=== PATIENT | male | born 1945 | race Two or more races ===

== ENCOUNTER 2020-05-24 08:40 | Outpatient (REF) | payer MEDICARE, SELFPAY ==
[2020-05-24 10:33] LABS: Prostate Specific Antigen 0.24 ng/mL (<0.05-4.0)
== END 2020-05-24 08:41 | disposition home or self-care (01) ==
LOC: HO.LAB 08:40
PROVIDERS: PCP Internal Medicine; Visit Provider Nurse Practitioner
DX: N40.0 Benign prostatic hyperplasia without lower urinary tract symptoms (principal); Z12.5 Encounter for screening for malignant neoplasm of prostate
CPT/HCPCS: 84153

== ENCOUNTER 2020-08-23 16:58 | Outpatient (REF) | payer MEDICARE, SELFPAY ==
--- NOTE | ~2020-08-23 | XR_ITS ---
EXAMINATION: CHEST 2 VIEWS CLINICAL INFORMATION: R07.9 - Chest pain, unspecified . COMPARISON: 11/25/2018. TECHNIQUE: PA and lateral views of the chest obtained. FINDINGS: The lungs are well expanded. No focal infiltrate, effusion, edema, or pneumothorax. Cardiac and mediastinal silhouettes are within normal limits for technique. No acute bony abnormality seen with degenerative changes in the spine. XR/XR chest 2V IMPRESSION: No evidence of acute disease
== END 2020-08-23 16:59 | disposition home or self-care (01) ==
LOC: HO.XRAY 16:58
PROVIDERS: PCP Internal Medicine; Visit Provider Internal Medicine
DX: R07.9 Chest pain, unspecified (principal)
CPT/HCPCS: 71046

== ENCOUNTER 2020-08-30 14:23 | Outpatient (REF) | payer MEDICARE, SELFPAY ==
--- NOTE | ~2020-08-30 | MM_ITS ---
EXAMINATION: MM DIAGNOSTIC DIGITAL BREAST TOMOSYNTHESIS, BILATERAL US DIAGNOSTIC ULTRASOUND BREAST, LEFT CLINICAL INFORMATION: 75-year-old male with left nipple/areolar pain for several months. No palpable mass or discharge. No known family history breast cancer. COMPARISON: None (current study represents initial baseline exam). TECHNIQUE: Digital breast tomosynthesis is performed in both the craniocaudal and mediolateral oblique views along with computer-aided detection (CAD). Synthesized 2D images are generated from the tomosynthesis. Ultrasound left breast is targeted to the retroareolar and periareolar region. Grayscale imaging and color Doppler are performed without and with harmonics. FINDINGS: The breasts are almost entirely fatty (ACR BI-RADS breast composition Category a). There is no mass or architectural abnormality. No duct ectasia. No focal skin thickening or coarsening of the stromal markings. Ultrasound demonstrates no cystic or solid mass or architectural abnormality. No focal duct ectasia. No skin thickening or edema tracking in the soft tissue planes. Results are discussed with the patient at time of visit. MM/MM tomosynthesis diagnostic BI IMPRESSION: 1. No mammographic evidence of malignancy or inflammatory changes. 2. Unremarkable targeted left breast ultrasound. ASSESSMENT: BI-RADS 1: Negative RECOMMENDATION: Patient should be managed based on the clinical impression.
== END 2020-08-30 14:24 | disposition home or self-care (01) ==
LOC: HO.MAMMO 14:23
PROVIDERS: Visit Provider Internal Medicine
DX: N64.4 Mastodynia (principal)
CPT/HCPCS: 76642; 77062; 77066

== ENCOUNTER → 2020-09-07 07:55 | Outpatient (REF) | payer MEDICARE, SELFPAY ==
--- NOTE | 2020-09-07 08:00 | ECG_ITS ---
Test Reason : CP Blood Pressure : / mmHG Vent. Rate : 062 BPM Atrial Rate : 000 BPM P-R Int : 156 ms QRS Dur : 90 ms QT Int : 392 ms P-R-T Axes : 67 49 50 degrees QTc Int : 397 ms Normal sinus rhythm Normal ECG When compared with ECG of 07-SEP-2020 08:08, No significant changes seen Referred By: Jassi Wheat Electronically Signed By: BLAINE CHIN
--- NOTE | 2020-09-07 08:00 | CA_ITS ---
Acquisition Time: 2020-09-07 08:17:17 Total Exercise Time: 00:06:59 Test Indications: Dyspnea Medications: SIMVASTATIN FINASTERIDE TAMSULOSIN Protocol: JANA Max HR: 133 BPM 93% of Pred: 143 BPM Max BP: 200/080 mmHG Max Work Load: 8.5 METS Exercise stress test using Jana protocol, total of 6 min 59 sec. METS 8.50, TAPHR up to 93 %. Pt tolerated well, denies any anginal sx, EKG with multiple PAC's at baseline and during exercise. No ischemic changes seen during exercise or in recovery. Hypertensive response to exercise. Test reviewed with Dr. Castillo. Referred By: Jassi Wheat Overread By:
== END ==
LOC: HO.CARD 07:55
PROVIDERS: PCP Internal Medicine; Visit Provider Internal Medicine
DX: R07.9 Chest pain, unspecified (principal)
CPT/HCPCS: 93005; 93016; 93017; 93018

== ENCOUNTER 2021-02-22 13:03 | Outpatient (REF) | payer MEDICARE, SELFPAY ==
--- NOTE | ~2021-02-22 | XR_ITS ---
EXAMINATION: XR KNEE, RIGHT CLINICAL INFORMATION: Right knee pain. COMPARISON: None TECHNIQUE: Four views of the right knee. FINDINGS: No acute fracture or dislocation. Mild medial compartment joint space narrowing. Small patellofemoral compartment marginal osteophytes with mild subchondral cystic change. Moderate joint effusion. Ossified loose body posterior to the medial tibial plateau measuring up to 2.3 cm. XR/XR knee RT 4V IMPRESSION: Mild medial and patellofemoral compartment osteoarthritis. Posterior ossified loose body measuring up to 2.3 cm. Moderate joint effusion.
== END 2021-02-22 13:04 | disposition home or self-care (01) ==
LOC: HO.HMGCX 13:03
PROVIDERS: PCP Internal Medicine; Visit Provider Physician Assistant
DX: M25.561 Pain in right knee (principal)
CPT/HCPCS: 73564

== ENCOUNTER 2021-03-17 07:24 | Outpatient (REF) | payer MEDICARE, SELFPAY ==
[2021-03-17 08:29] LABS: Estimated Average Glucose 117 mg/dL; Hemoglobin A1c % 5.7 %
[2021-03-17 08:38] LABS: Alanine Aminotransferase 25 U/L (0-40); Albumin Level 4.4 g/dL (3.5-5.0); Alkaline Phosphatase 68 U/L (39-117); Anion Gap 9 (12-20); Aspartate Amino Transferase 23 U/L (5-37); Bilirubin Total 1.3 mg/dL (0.0-1.0); Blood Urea Nitrogen 13 mg/dL (9-16); Calcium 10.3 mg/dL (8.4-10.2); Carbon Dioxide 28 mmol/L (22-29); Chloride 108 mmol/L (96-108); Cholesterol 166 mg/dL; Estimated Glomerular Filt Rate > 60; Glucose Random 97 mg/dL (60-115); HDL Cholesterol 41 mg/dL; LDL Cholesterol Calculated 110 mg/dl; Potassium 4.2 mmol/L (3.3-5.1); Sodium 141 mmol/L (135-145); Total Protein 7.1 g/dL (6.5-8.0); Triglycerides 78 mg/dL
[2021-03-17 09:03] LABS: Free T4 (Free Thyroxine) 0.98 ng/dL (0.71-1.85); Thyroid Stimulating Hormone 1.29 uIU/mL (0.32-4.0)
== END 2021-03-17 07:25 | disposition home or self-care (01) ==
LOC: HO.LAB 07:24
PROVIDERS: PCP Internal Medicine; Visit Provider Internal Medicine
DX: R73.02 Impaired glucose tolerance (oral) (principal); E78.00 Pure hypercholesterolemia, unspecified
CPT/HCPCS: 36415; 80053; 80061; 83036; 84439; 84443

== ENCOUNTER 2021-04-06 09:08 | Outpatient (REF) | payer MEDICARE, SELFPAY | END 2021-04-06 09:09 | disposition home or self-care (01) | LOC: HO.HOSX 09:08 | PROVIDERS: Visit Provider Physician Assistant | DX: M17.11 Unilateral primary osteoarthritis, right knee (principal); M25.562 Pain in left knee | CPT/HCPCS: 99202 ==

== ENCOUNTER 2022-03-22 14:11 | Outpatient (REF) | payer MEDICARE, SELFPAY | END 2022-03-22 14:12 | disposition home or self-care (01) | LOC: HO.SH 14:11 | PROVIDERS: Visit Provider Internal Medicine | DX: Z01.118 Encounter for examination of ears and hearing with other abnormal findings (principal); H90.3 Sensorineural hearing loss, bilateral | CPT/HCPCS: 92557; 92567 ==

== ENCOUNTER 2022-09-14 08:13 | Outpatient (REF) | payer MEDICARE, SELFPAY ==
[2022-09-14 08:31] LABS: MANUAL DIFF FLAG NO
[2022-09-14 09:59] LABS: Basophils Absolute Auto 0.1 X10*3/uL (0.0-0.2); Basophils Percent Auto 0.5 % (0-2); Eosinophils Absolute Auto 0.4 X10*3/uL (0.0-0.4); Eosinophils Percent Auto 4.5 % (0-4); Hematocrit 42.8 % (42.0-52.0); Hemoglobin 14.2 g/dl (14.0-18.0); Imm Gran Abs Auto 0.03 X10*3/uL (0.00-0.03); Imm Gran Pct Auto 0.3 % (0.0-0.4); Lymphocytes Absolute Auto 2.2 X10*3/uL (1.2-4.9); Lymphocytes Percent Auto 22.9 % (20-40); Mean Corpuscular HGB Conc 33.2 g/dl (31.0-36.0); Mean Corpuscular Volume 90.3 fL (80.0-98.0); Mean Platelet Volume 10.9 fL (9.4-12.4); Monocytes Percent Auto 9.9 % (2-11); Neutrophils Percent Auto 61.9 % (45-73); Platelet Count 313 X10*3/uL (160-400); Red Blood Count 4.74 X10*6/uL (4.60-5.80); Red Cell Distribution Width 13.1 % (11.0-16.0); White Blood Count 9.6 X10*3/uL (4.8-10.8)
[2022-09-14 12:26] LABS: Estimated Average Glucose 120 mg/dL; Hemoglobin A1c % 5.8 %
[2022-09-14 12:44] LABS: Alanine Aminotransferase 21 U/L (0-40); Albumin Level 4.3 g/dL (3.5-5.0); Alkaline Phosphatase 87 U/L (39-117); Anion Gap 12 (12-20); Aspartate Amino Transferase 21 U/L (5-37); Bilirubin Total 0.6 mg/dL (0.0-1.0); Blood Urea Nitrogen 9 mg/dL (9-16); Calcium 9.6 mg/dL (8.4-10.2); Carbon Dioxide 29 mmol/L (22-29); Chloride 105 mmol/L (96-108); Cholesterol 172 mg/dL; Estimated Glomerular Filt Rate > 60; Glucose Random 90 mg/dL (60-115); HDL Cholesterol 37 mg/dL; LDL Cholesterol Calculated 122 mg/dl; Potassium 4.7 mmol/L (3.3-5.1); Sodium 141 mmol/L (135-145); Total Protein 6.9 g/dL (6.5-8.0); Triglycerides 68 mg/dL
[2022-09-14 13:01] LABS: Folate 7.7 ng/mL (> or = 4.0); Free T4 (Free Thyroxine) 1.09 ng/dL (0.71-1.85); Thyroid Stimulating Hormone 1.17 uIU/mL (0.32-4.0); Vitamin B12 341 pg/mL (200-900)
== END 2022-09-14 08:14 | disposition home or self-care (01) ==
LOC: HO.LAB 08:13
PROVIDERS: PCP Internal Medicine; Visit Provider Internal Medicine
DX: E78.00 Pure hypercholesterolemia, unspecified (principal); R73.02 Impaired glucose tolerance (oral)
CPT/HCPCS: 36415; 80053; 80061; 82607; 82746; 83036; 84439; 84443; 85025

== ENCOUNTER → 2023-02-27 15:03 | Outpatient (BNVA) | payer MEDICARE, SELFPAY | PROVIDERS: PCP Internal Medicine; Visit Provider Nurse Practitioner ==

== ENCOUNTER 2023-04-05 13:50 | Outpatient (AMB) | payer MEDICARE, SELFPAY ==
[2023-04-05 13:54] VITALS: BP 140/78; PULSE 77; O2SAT 96; BMI 26.3
--- NOTE | 2023-04-05 13:55 | A.OFFVIS_ITS ---
Intake Vital Signs 04/05/23 13:54 Height 5 ft 4 in Weight 153 lb 0.6 oz BMI 26.3 BP 140/78 H Blood Pressure Location Lt brachial Position Sitting Pulse 77 Pulse Source Pulse Oximeter Temp Source Skin Pulse Oximetry (%) 96 Oxygen Delivery Method Room Air Intake Visit Reasons: [facility] G0439 Intake Note: Patient is here for an Annual Wellness Visit. Allergies Seasonal Allergies Allergy (Mild, Verified 04/05/23 14:09) itchy, watery eyes, nose. Medication List - Last Reconciled 04/05/23 by DOROTHY Guerra acetaminophen 1,000 mg PO Q6H PRN melatonin 10 mg PO BEDTIME PRN peg 3350-electrolytes 236-22.74-6.74 -5.86 gram (Golytely) 240 mL PO Q10M 1 day tadalafil (Cialis) 20 mg PO .QOD PRN 20 days trazodone 50 mg PO BEDTIME PRN HPI SWV G0439 HPI Details Patient is a 77-year-old male who presents today for subsequent wellness visit. Patient of Dr. Wheat. Today we discussed patient's need for diabetes screening. Patient reports that he will be having colonoscopy with [facility] and he has prep. Up-to-date with immunizations. [place] of care was reviewed with the patient and he was provided with a screening schedule. End of life planning was discussed with the patient and he was provided with healthcare proxy and MOLST forms. [facility] Medical History Chest pain Hearing deficit Screening for prostate cancer Knee effusion, right Right knee pain Nipple pain Chest pain on exertion BPH (benign prostatic hyperplasia) Hypercholesterolemia Erectile dysfunction Insomnia Vitamin D deficiency History of subdural hematoma Surgical History History of colonoscopy Cataract Family History Father Kidney malignancy Mother CVD (cardiovascular disease) Brother No problems noted. Brother Heart disease Social History Housing: House Alcohol intake: current Alcohol intake frequency: 0-2 drinks per day Alcohol type: beer Patient Tobacco Use Status: Never used Tobacco e-Cigarette/Vaping Use: Never Used Second Hand Smoke Exposure: No service: No Current occupational status: retired Current occupation: rt handed Cognitive needs: No Hearing needs: No Vision needs: No Questionnaire Medicare Wellness Checkup What [age] What gender do you identify with?: male During the past 4 weeks, how much have you been bothered by emotional problems such as feeling anxious, depressed, irritable, sad or downhearted, and blue?: quite a bit During the past 4 weeks, has your physical & emotional health limited your social activities with family, friends, neighbors, or groups?: not at all During the past 4 weeks, how much bodily pain have you generally had?: moderate pain During the past 4 weeks, was someone available to help you if you needed & wanted help?: yes, quite a bit During the past 4 weeks, what was the hardest physical activity you could do for at least 2 minutes?: heavy Can you get to places out of walking distance without help? (For eg., can you travel alone on buses, taxis or drive your car?): Yes Can you go shopping for groceries or clothes without someone's help?: Yes Can you prepare your own meals?: Yes Can you do your housework without help?: Yes Because of any health problems, do you need the help of another person with your personal care needs such as eating, bathing, dressing or getting around the house?: No Can you handle your own money without help?: Yes During the past 4 weeks, how would you rate your health in general?: very good During the past 4 weeks how have things been going for you?: very well; could hardly better Are you having difficulties driving your car?: no Do you always fasten your seat belt when you are in a car?: yes, usually During past 4 weeks, have you been bothered by the following: never: Falling or dizzy when standing up, Trouble eating well?, Teeth or denture problems?, Problems using the telephone? and Tiredness or fatigue? and sometimes: Sexual problems? Have you fallen 2 or more times in the past year?: No Are you afraid of falling?: No Are you a smoker?: no During the past 4 weeks, how many drinks of wine, beer, or other alcoholic beverages did you have?: 1 drink or less per week Do you exercise for about 20 minutes 3 or more times a week?: yes, some of the time Have you been given information to help with the following?: no: Hazards in your house that might hurt you? and no: Keeping track of your medications? How often do you have trouble taking medicines the way you have been told to take them?: I always take medicine as prescribed How confident are you that you can control & manage most of your health problems?: very confident What is your race?: or origin or descent Mini Mental State Exam (MMSE) Orientation What is the (year) (season) (date) (day) (month)?: year, season, date, day and month Score Score: 5 Activity of Daily Living Bathing - sponge bath, tub bath or shower: receives no assistance (gets in/out by self, if usual bathing means Dressing - getting clothes from closets & drawers, including inner/outer garments & fasteners.: gets clothes & gets completely dressed without help Toileting - going to the 'toilet room' for urine/bowel elimination & cleaning self/arranging clothes: goes to toilet room, cleans self, arranges clothes without help Transfer: moves in & out of bed and chair without help (may use support object) Continence: controls urination/bowel movements completely by self Feeding: feeds self without help Total Score: 0 Information obtained from: patient Using telephone: independent Traveling: independent Shopping: independent Preparing meals: independent Housework: independent Taking medicine: independent Managing money: independent PHQ-9 Over the last 2 weeks, how often have you been bothered by any of the following problems? 1. Little interest or pleasure in doing things: not at all 2. Feeling down, depressed, or hopeless: not at all 3. Trouble falling or staying asleep, or sleeping too much: not at all 4. Feeling tired or having little energy: not at all 5. Poor appetite or overeating: not at all 6. Feeling bad about yourself - or that you are a failure or have let yourself or your family down: not at all 7. Trouble concentrating on things, such as reading the newspaper or watching television: not at all 8. Moving or speaking so slowly that other people could have noticed. Or the opposite - being so fidgety or restless that you have been moving around a lot more than usual: not at all 9. Thoughts that you would be better off or of hurting yourself in some way: not at all Total score: 0 Depression Screening Interpretation: Negative 40769 - PHQ-9 Billing: Yes Source: Developed by Drs. Brent Luque, Chrissy Ball, Daren Adams and colleagues, with an educational emir from [employer]. Physical Exam Vital Signs: Last Vital Signs Pulse 77 04/05/23 13:54 BP 140/78 H 04/05/23 13:54 Pulse Ox 96 04/05/23 13:54 Oxygen Delivery Method Room Air 04/05/23 13:54 BMI result Body Mass Index 26.3 Const General: cooperative and no acute distress Orientation/consciousness: patient oriented x3 HEENT Other: Whisper test: fail Neuro Other: Balance: Normal Get up and walk: able to Romberg: negative Tandem gait: able to General: patient oriented x3 Assessment & Plan Assessment & Plan (1) Annual physical exam: Code(s): Z00.00 - Encounter for general adult medical examination without abnormal findings (2) Insomnia: Code(s): G47.00 - Insomnia, unspecified Plan: Reinforced sleep hygiene Refill sent on trazodone (3) Impaired glucose tolerance: Code(s): R73.02 - Impaired glucose tolerance (oral) Plan: Fasting BMP has been ordered (4) Patient is Taoism: Code(s): Z78.9 - Other specified health status (5) BPH (benign prostatic hyperplasia): Code(s): N40.0 - Benign prostatic hyperplasia without lower urinary tract symptoms Plan: Continue to follow-up with urology Dr. Fraga Patient is not on pharmacological treatment (6) Hypercholesterolemia: Code(s): E78.00 - Pure hypercholesterolemia, unspecified Plan: Low-cholesterol diet (7) Screening for diabetes mellitus: Code(s): Z13.1 - Encounter for screening for diabetes mellitus Orders: Orders Basic Metabolic Panel Fasting Today Z13.1 - Encounter for screening for diabetes mellitus Medications: Refilled trazodone 50 mg PO BEDTIME PRN 30 tabs 3RF sleep G47.00 - Insomnia, unspecified Quality Reporting (2019) Depression/Bipolar (159/160/161/177) PHQ-9: Total score: 0 Coding Level of Care Code Medicare Subsequent (G0439) Diagnoses Annual physical exam Z00.00 Insomnia G47.00 Impaired glucose tolerance R73.02 Patient is Taoism Z78.9 BPH (benign prostatic hyperplasia) N40.0 Hypercholesterolemia E78.00 Screening for diabetes mellitus Z13.1 CPT Codes Advance Care Planning - Time spent: 1-15 minutes, not on file ([id number]) Advance Care Planning Date of discussion: 04/05/23 Who was present: pt and records management clerk Forms completed: None Time spent: 1-15 minutes, not on file Actual minutes spent: 3 Did not discuss due to Cultural/Spiritual beliefs: No
== END 2023-04-05 14:25 | disposition home or self-care (01) ==
PROVIDERS: Visit Provider Nurse Practitioner Family
DX: Z00.00 Encounter for general adult medical examination without abnormal findings (principal); G47.00 Insomnia, unspecified; R73.02 Impaired glucose tolerance (oral); Z78.9 Other specified health status; N40.0 Benign prostatic hyperplasia without lower urinary tract symptoms; E78.00 Pure hypercholesterolemia, unspecified; Z13.1 Encounter for screening for diabetes mellitus
CPT/HCPCS: 1124F; G0439

== ENCOUNTER 2023-10-07 15:23 | Outpatient (AMB) | payer MEDICARE, SELFPAY ==
[2023-10-07 15:24] VITALS: BP 162/70; PULSE 69; O2SAT 98; BMI 25.7
--- NOTE | 2023-10-07 15:24 | MHC.PC.OV ---
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 Medication List - Last Reconciled 10/07/23 by Jassi Wheat MD acetaminophen 1,000 mg PO Q6H PRN blood pressure monitor (Blood Pressure Kit) As directed melatonin 10 mg PO BEDTIME PRN peg 3350-electrolytes 236-22.74-6.74 -5.86 gram (Golytely) 240 mL PO Q10M 1 day tadalafil (Cialis) 20 mg PO .QOD PRN 20 days trazodone 50 mg PO BEDTIME PRN Tobacco use date assessed: 10/07/23 Fall risk assessment: No Falls in past year Last assessed Fall Risk: 10/07/23 Dental Screening Dental Screen Date: 10/07/23 Did you have a dental visit in the last 12 months?: No Did you have a dental problem in the last 6 months where you did not have access to dental care?: No HPI 6 Months F/U-HLD HPI Details 78-year-old male with hypercholesterolemia impaired glucose tolerance insomnia coming in for follow-up. Last seen in October 2022. Patient has followed up with nurse practitioner in March for a [place]. And has followed up with Gastroenterology for colon cancer screening. concern on forgetting things, neck pain but discussed with the pateint that he will have osteoarthritis , MMSE 27/30 [facility] Medical History Chest pain Hearing deficit Screening for prostate cancer Knee effusion, right Right knee pain Nipple pain Chest pain on exertion BPH (benign prostatic hyperplasia) Hypercholesterolemia Erectile dysfunction Insomnia Vitamin D deficiency History of subdural hematoma Surgical History History of colonoscopy Cataract Family History Father Kidney malignancy Mother CVD (cardiovascular disease) Brother No problems noted. Brother Heart disease Social History Housing: House Alcohol intake: current Alcohol intake frequency: 0-2 drinks per day Alcohol type: beer Patient Tobacco Use Status: Never used Tobacco e-Cigarette/Vaping Use: Never Used Second Hand Smoke Exposure: No service: No Current occupational status: retired Current occupation: rt handed Cognitive needs: No Hearing needs: No Vision needs: No Questionnaire PHQ-9 Over the last 2 weeks, how often have you been bothered by any of the following problems? 1. Little interest or pleasure in doing things: not at all 2. Feeling down, depressed, or hopeless: not at all 3. Trouble falling or staying asleep, or sleeping too much: not at all 4. Feeling tired or having little energy: not at all 5. Poor appetite or overeating: not at all 6. Feeling bad about yourself - or that you are a failure or have let yourself or your family down: not at all 7. Trouble concentrating on things, such as reading the newspaper or watching television: not at all 8. Moving or speaking so slowly that other people could have noticed. Or the opposite - being so fidgety or restless that you have been moving around a lot more than usual: not at all 9. Thoughts that you would be better off or of hurting yourself in some way: not at all Total score: 0 Depression Screening Interpretation: Negative Depression Screening Done: Yes 69035 - PHQ-9 Billing: Yes Source: Developed by Drs. Brent Luque, Chrissy Ball, Daren Adams and colleagues, with an educational emir from [employer]. Thrive Questionnaire Date Thrive assessed: 10/07/23 I am a: Patient What is your living situation today?: I have a steady place to live Within the past 12 months, did the food you bought not last and you didn't have the money to get more?: Never true Within the past 12 months, did you worry whether your food would run out before you got money to buy more?: Never true Do you have trouble paying for medicines?: No Do you have trouble getting transportation to medical appointments?: No Do you have trouble paying your heating and electricity bill?: No Do you have trouble taking care of your child, family member or friend?: No Do you have trouble with day-to-day activities such as bathing, preparing meals, shopping, managing finances, etc.?: No Are you currently unemployed and looking for a job?: No Are you interested in more education?: No Please select the resources that you would like help with: None Currently or been in a relationship where the following occur: no concerns reported THRIVE Score: 0 AUDIT C Alcohol Use Questionnaire (AUDIT-C) 1. How often do you have a drink containing alcohol?: Monthly or less 2. How many drinks containing alcohol do you have on a typical day when you are drinking?: 1 or 2 (0) 3. How often do you have six or more drinks on one occasion?: Never Total Score: 1 Score Reviewed/Action Taken: No STEPHON-7 AMB Questionnaire STEPHON-7 Date STEPHON - 7 assessed: 10/07/23 Feeling nervous, anxious, or on edge: 0 = Not at all Not being able to stop or control worryin = Not at all Worrying too much about different things: 0 = Not at all Trouble relaxin = Not at all Being so restless that it is hard to sit still: 0 = Not at all Becoming easily annoyed or irritable: 0 = Not at all Feeling afraid as if something awful might happen: 0 = Not at all Total STEPHON-7 score (0-4 normal; 5-9 mild; 10-14 moderate; 15-21 severe): 0 Source: Developed by Drs. Brent Luque, Chrissy Ball, Daren Adams and colleagues, with an educational emir from [employer]. STEPHON-7 Assessment Billing STEPHON-7 Assessment Tool: STEPHON-7 Assessment 69915 Physical exam (Primary Care) Vital Signs: Last Vital Signs Pulse 69 10/07/23 15:24 BP 162/70 H 10/07/23 15:24 Pulse Ox 98 10/07/23 15:24 Oxygen Delivery Method Room Air 10/07/23 15:24 BMI result Body Mass Index 25.7 Tobacco/Smoking Status: Tobacco use Status Tobacco use date assessed 10/07/23 10/07/23 15:25 Patient Tobacco Use Status Never used Tobacco 10/07/23 15:25 e-Cigarette/Vaping Use Never Used 10/07/23 15:25 PHQ-9: PHQ-9 Score PHQ-9: Total score 0 10/07/23 15:49 Depression Screening Interpretation: Negative Thrive Assessment: Date of Thrive Assessment Date Thrive assessed 10/07/23 10/07/23 15:25 Currently or been in a relationship where the following occur: no concerns reported Const General: alert; No acute distress Eyes Conjunctivae: conjunctivae normal Resp Auscultation: clear to auscultation bilaterally Cardio Rate: regular rate Rhythm: regular rhythm GI Inspection: Yes normal to inspection Extrem General: Yes normal to inspection and No edema Assessment and Plan Assessment & Plan (1) Hypercholesterolemia: Code(s): E78.00 - Pure hypercholesterolemia, unspecified Plan: Avoid fried foods, chicken skin, eggs, butter margarine, pastries and meat. Be it pork or beef they have a lot of cholesterol (2) BPH (benign prostatic hyperplasia): Code(s): N40.0 - Benign prostatic hyperplasia without lower urinary tract symptoms Plan: Continue present medication (3) Impaired glucose tolerance: Code(s): R73.02 - Impaired glucose tolerance (oral) Plan: Decrease the amount of carbohydrate intake, pasta, bread, rice and potatoes are all sugar and that is aside from all the sweet stuff, remember that fruits are good but they are Sweet also. (4) Blood pressure elevated without history of HTN: Code(s): R03.0 - Elevated blood-pressure reading, without diagnosis of hypertension Plan: advised to ,monitor the BP and record Orders: Orders Comprehensive Met. Panel Today R73.02 - Impaired glucose tolerance (oral) Free T4 (Free Thyroxine) Today R73.02 - Impaired glucose tolerance (oral) Thyroid Stimulating Hormone Today R73.02 - Impaired glucose tolerance (oral) Complete Blood Count Auto Diff Today R73.02 - Impaired glucose tolerance (oral) Vitamin B12 and Folate Today R73.02 - Impaired glucose tolerance (oral) Hemoglobin A1c Today R73.02 - Impaired glucose tolerance (oral) Lipid Panel Today E78.00 - Pure hypercholesterolemia, unspecified, R73.02 - Impaired glucose tolerance (oral) Medications: New blood pressure monitor (Blood Pressure Kit) As directed 1 ea 0RF I10 - Essential (primary) hypertension, R03.0 - Elevated blood-pressure reading, without diagnosis of hypertension Coding Level of Care Code Est Pt Level 4 (50487) Diagnoses Hypercholesterolemia E78.00 BPH (benign prostatic hyperplasia) N40.0 Impaired glucose tolerance R73.02 Blood pressure elevated without history of HTN R03.0 Additional Codes STEPHON-7 Assessment Billing - STEPHON-7 Assessment Tool: STEPHON-7 Assessment [id number] ([id number])
== END 2023-10-07 17:42 | disposition home or self-care (01) ==
PROVIDERS: PCP Internal Medicine; Visit Provider Internal Medicine
DX: E78.00 Pure hypercholesterolemia, unspecified (principal); N40.0 Benign prostatic hyperplasia without lower urinary tract symptoms; R73.02 Impaired glucose tolerance (oral); R03.0 Elevated blood-pressure reading, without diagnosis of hypertension
CPT/HCPCS: 99214

== ENCOUNTER 2024-02-18 14:24 | Outpatient (AMB) | payer MEDICARE, SELFPAY ==
[2024-02-18 14:28] VITALS: BP 130/60; PULSE 76; O2SAT 95; BMI 25.1
--- NOTE | 2024-02-18 14:28 | MHC.PC.OV ---
Vital Signs 02/18/24 14:28 Height 5 ft 4 in Weight 146 lb BMI 25.1 BP 130/60 Blood Pressure Location Lt brachial Position Sitting Pulse 76 Pulse Source Pulse Oximeter Pulse Oximetry (%) 95 Oxygen Delivery Method Room Air Intake Visit Reasons: Blood pressured elevated Switch House Operator Required: No Allergies Seasonal Allergies Allergy (Mild, Verified 02/18/24 14:28) itchy, watery eyes, nose. Tobacco use date assessed: 10/07/23 Fall risk assessment: No Falls in past year Last assessed Fall Risk: 02/18/24 Dental Screening Dental Screen Date: 10/07/23 HPI Blood pressured elevated HPI Details 78-year-old male with hypercholesterolemia BPH impaired glucose tolerance and last seen in October having an elevated blood pressure patient is here for follow-up. R shoulder pain , deny fall or trauma [facility] Medical History (Updated 02/18/24 @ 14:46 by Jassi Wheat MD) Pre-op examination Screening for diabetes mellitus Chest pain Hearing deficit Screening for prostate cancer Knee effusion, right Right knee pain Nipple pain Chest pain on exertion BPH (benign prostatic hyperplasia) Hypercholesterolemia Erectile dysfunction Insomnia Vitamin D deficiency History of subdural hematoma Surgical History History of colonoscopy Cataract Family History Father Kidney malignancy Mother CVD (cardiovascular disease) Brother No problems noted. Brother Heart disease Social History Housing: House Alcohol intake: current Alcohol intake frequency: 0-2 drinks per day Alcohol type: beer Patient Tobacco Use Status: Never used Tobacco e-Cigarette/Vaping Use: Never Used Second Hand Smoke Exposure: No service: No Current occupational status: retired Current occupation: rt handed Cognitive needs: No Hearing needs: No Vision needs: No Questionnaire Thrive Questionnaire Date Thrive assessed: 10/07/23 AUDIT C Alcohol Use Questionnaire (AUDIT-C) 1. How often do you have a drink containing alcohol?: Monthly or less 2. How many drinks containing alcohol do you have on a typical day when you are drinking?: 1 or 2 (0) 3. How often do you have six or more drinks on one occasion?: Never Total Score: 1 Score Reviewed/Action Taken: No STEPHON-7 AMB Questionnaire STEPHON-7 Date STEPHON - 7 assessed: 10/07/23 Source: Developed by Drs. Brent Luque, Chrissy Ball, Daren Adams and colleagues, with an educational emir from [employer]. Physical exam (Primary Care) Vital Signs: Last Vital Signs Pulse 76 02/18/24 14:28 BP 130/60 02/18/24 14:28 Pulse Ox 95 02/18/24 14:28 Oxygen Delivery Method Room Air 02/18/24 14:28 BMI result Body Mass Index 25.1 Tobacco/Smoking Status: Tobacco use Status Tobacco use date assessed 10/07/23 02/18/24 14:29 Patient Tobacco Use Status Never used Tobacco 02/18/24 14:29 e-Cigarette/Vaping Use Never Used 02/18/24 14:29 Thrive Assessment: Date of Thrive Assessment Date Thrive assessed 10/07/23 02/18/24 14:29 Const General: alert; No acute distress Eyes Conjunctivae: conjunctivae normal Resp Auscultation: clear to auscultation bilaterally Cardio Rate: regular rate Rhythm: regular rhythm GI Inspection: Yes normal to inspection Extrem General: Yes normal to inspection and No edema Assessment and Plan Assessment & Plan (1) Blood pressure elevated without history of HTN: Code(s): R03.0 - Elevated blood-pressure reading, without diagnosis of hypertension Plan: Blood pressure presently on under control. Though sodium diet. (2) Hypercholesterolemia: Code(s): E78.00 - Pure hypercholesterolemia, unspecified Plan: Avoid fried foods, chicken skin, eggs, butter margarine, pastries and meat. Be it pork or beef they have a lot of cholesterol (3) BPH (benign prostatic hyperplasia): Code(s): N40.0 - Benign prostatic hyperplasia without lower urinary tract symptoms Plan: Continue with tadalafil (4) Insomnia: Code(s): G47.00 - Insomnia, unspecified Medications: Changed From trazodone 50 mg PO BEDTIME PRN 30 tabs 3RF sleep G47.00 - Insomnia, unspecified To trazodone 100 mg PO BEDTIME PRN 30 tabs 3RF sleep G47.00 - Insomnia, unspecified Coding Level of Care Code Est Pt Level 4 (25031) Diagnoses Blood pressure elevated without history of HTN R03.0 Hypercholesterolemia E78.00 BPH (benign prostatic hyperplasia) N40.0 Insomnia G47.00
== END 2024-02-18 15:00 | disposition home or self-care (01) ==
PROVIDERS: PCP Internal Medicine; Visit Provider Internal Medicine
DX: R03.0 Elevated blood-pressure reading, without diagnosis of hypertension (principal); E78.00 Pure hypercholesterolemia, unspecified; N40.0 Benign prostatic hyperplasia without lower urinary tract symptoms; G47.00 Insomnia, unspecified
CPT/HCPCS: 99214

== ENCOUNTER 2024-06-26 13:14 | Outpatient (AMB) | payer MEDICARE, SELFPAY ==
--- NOTE | 2024-06-26 13:17 | A.OFFPC_ITS ---
Vital Signs 06/26/24 13:18 Height 5 ft 4 in Weight 151 lb 8 oz BMI 26.0 BP 140/70 H Blood Pressure Location Lt brachial Position Sitting Pulse 80 Pulse Source Pulse Oximeter Pulse Oximetry (%) 98 Oxygen Delivery Method Room Air Intake Visit Reasons: Annual PE - see comment Allergies Seasonal Allergies Allergy (Mild, Verified 06/26/24 13:21) itchy, watery eyes, nose. Medication List - Last Reconciled 06/26/24 by Jassi Wheat MD acetaminophen 1,000 mg PO Q6H PRN bisacodyl (Dulcolax (bisacodyl)) 20 mg (4 x 5 mg) PO ONCE 1 day blood pressure monitor (Blood Pressure Kit) As directed melatonin 10 mg PO BEDTIME PRN trazodone 100 mg PO BEDTIME PRN Tobacco use date assessed: 06/26/24 Fall risk assessment: No Falls in past year Last assessed Fall Risk: 06/26/24 Dental Screening Dental Screen Date: 06/26/24 Did you have a dental visit in the last 12 months?: No Did you have a dental problem in the last 6 months where you did not have access to dental care?: No Was dental information given to patient?: Patient has dentist HPI Annual PE - see comment HPI Details The patient is an 78-year-old male presenting with hypertension. Previously diagnosed, the patient's blood pressure has been uncontrolled, with home measurements indicating persistent high readings. This condition has been progressively monitored with emphasis on consistent recording of blood pressure at least two to three times a week. Attempts to manage at home include monitoring diet and reducing salt intake. The patient reports no prior cardiovascular events but acknowledges familial predisposition with a paternal history of kidney cancer. The patient also presents with benign prostatic hyperplasia, experiencing nocturia and urgency, impacting sleep quality. The patient described increased urinary frequency, needing to void urgently, often leading to incontinence. He has a planned follow-up appointment with a urologist to address these symptoms. Additionally, the patient notes a history of intermittent sleep disturbance, for which he takes trazodone intermittently. The patient described waking multiple times at night, although trazodone provides some relief. A recent history of hearing difficulties was noted, yet not severe enough to require immediate auditory evaluation. - Pneumonia vaccination has been adminis tered previously. - Tetanus immunization is current. - Dietary advice includes sodium reducti on for hypertension management. - Scheduled follow-up with urology for b enign prostatic hyperplasia. - Consumes alcohol approximately once a week, with an intake of one drink each time. - Denies tobacco use history. - Reports difficulty with sleep, possibl y related to benign prostatic hyperplasia and general sleep disturbances. - Lives with sleep interruptions due to urgency related to his prostate condition. - Cardiovascular: Reports hypertension, denies chest pain, denies palpitations. - Genitourinary: Reports urgency, noctur ia, and incontinence; denies burning during urination. - Neurological: Reports occasional sleep disturbance; denies dizziness or syncope. - Ears: Reports some hearing difficulty; denies ear pain. [facility] Medical History Pre-op examination Screening for diabetes mellitus Chest pain Hearing deficit Screening for prostate cancer Knee effusion, right Right knee pain Nipple pain Chest pain on exertion BPH (benign prostatic hyperplasia) Hypercholesterolemia Erectile dysfunction Insomnia Vitamin D deficiency History of subdural hematoma Surgical History History of colonoscopy Cataract Family History Father Kidney malignancy Mother CVD (cardiovascular disease) Brother No problems noted. Brother Heart disease Social History (Updated 06/26/24 @ 14:01 by Jassi Wheat MD) Housing: House Alcohol intake: current Alcohol intake frequency: 0-2 drinks per day Alcohol type: beer Comment: once a week 1 drink Patient Tobacco Use Status: Never used Tobacco e-Cigarette/Vaping Use: Never Used Second Hand Smoke Exposure: No service: No Current occupational status: retired Current occupation: rt handed Cognitive needs: No Hearing needs: No Vision needs: No Questionnaire PHQ-9 Over the last 2 weeks, how often have you been bothered by any of the following problems? 1. Little interest or pleasure in doing things: not at all 2. Feeling down, depressed, or hopeless: not at all 3. Trouble falling or staying asleep, or sleeping too much: several days 4. Feeling tired or having little energy: not at all 5. Poor appetite or overeating: not at all 6. Feeling bad about yourself - or that you are a failure or have let yourself or your family down: not at all 7. Trouble concentrating on things, such as reading the newspaper or watching television: not at all 8. Moving or speaking so slowly that other people could have noticed. Or the opposite - being so fidgety or restless that you have been moving around a lot more than usual: not at all 9. Thoughts that you would be better off or of hurting yourself in some way: not at all Total score: 1 Depression Screening Interpretation: Negative Depression Screening Done: Yes 76875 - PHQ-9 Billing: Yes Source: Developed by Drs. Brent Luque, Chrissy Ball, Daren Adams and colleagues, with an educational emir from [employer]. Thrive Questionnaire Date Thrive assessed: 06/26/24 I am a: Patient What is your living situation today?: I have a steady place to live Within the past 12 months, did the food you bought not last and you didn't have the money to get more?: Never true Within the past 12 months, did you worry whether your food would run out before you got money to buy more?: Never true Do you have trouble paying for medicines?: No Do you have trouble getting transportation to medical appointments?: No Do you have trouble paying your heating and electricity bill?: No Do you have trouble taking care of your child, family member or friend?: No Do you have trouble with day-to-day activities such as bathing, preparing meals, shopping, managing finances, etc.?: No Are you currently unemployed and looking for a job?: No Are you interested in more education?: No Please select the resources that you would like help with: None Currently or been in a relationship where the following occur: No concerns reported THRIVE Score: 0 AUDIT C Alcohol Use Questionnaire (AUDIT-C) 1. How often do you have a drink containing alcohol?: 2-3 times a week 2. How many drinks containing alcohol do you have on a typical day when you are drinking?: 1 or 2 3. How often do you have six or more drinks on one occasion?: Never Total Score: 3 STEPHON-7 AMB Questionnaire STEPHON-7 Date STEPHON - 7 assessed: 06/26/24 Feeling nervous, anxious, or on edge: 0 = Not at all Not being able to stop or control worryin = Not at all Worrying too much about different things: 0 = Not at all Trouble relaxin = Not at all Being so restless that it is hard to sit still: 0 = Not at all Becoming easily annoyed or irritable: 0 = Not at all Feeling afraid as if something awful might happen: 0 = Not at all Total STEPHON-7 score (0-4 normal; 5-9 mild; 10-14 moderate; 15-21 severe): 0 Source: Developed by Drs. Brent Luque, Chrissy Ball, Daren Adams and colleagues, with an educational emir from [employer]. STEPHON-7 Assessment Billing STEPHON-7 Assessment Tool: STEPHON-7 Assessment 26612 Review of Systems Const Denies poor appetite and Denies weakness Eyes Denies no additional complaints ENT Reports Normal hearing present, Denies dizziness, Denies nasal congestion, Denies tinnitus and Denies sore throat Card Denies chest pain, Denies syncope, Denies rapid heart rate and Denies dyspnea Resp Denies cough and Denies dyspnea GI Denies change in stool character, Reports constipation, Denies diarrhea, Denies nausea and Denies vomiting Denies dysuria and Denies urinary frequency Neuro Reports Normal hearing present, Denies confusion, Denies dizziness, Denies syncope and Denies weakness Psych Denies confusion Physical exam (Primary Care) Vital Signs: Last Vital Signs Pulse 80 06/26/24 13:18 BP 140/70 H 06/26/24 13:18 Pulse Ox 98 06/26/24 13:18 Oxygen Delivery Method Room Air 06/26/24 13:18 BMI result Body Mass Index 26.0 Tobacco/Smoking Status: Tobacco use Status Tobacco use date assessed 06/26/24 06/26/24 13:22 Patient Tobacco Use Status Never used Tobacco 06/26/24 14:01 e-Cigarette/Vaping Use Never Used 06/26/24 14:01 PHQ-9: PHQ-9 Score PHQ-9: Total score 1 06/26/24 13:55 Depression Screening Interpretation: Negative Thrive Assessment: Date of Thrive Assessment Date Thrive assessed 06/26/24 06/26/24 13:22 Currently or been in a relationship where the following occur: No concerns reported Const General: No confusion Orientation/consciousness: No confusion HENMT Head: Yes normocephalic Ears: external ears normal and TM's normal bilaterally Face and sinus: Yes normal facial exam Mouth: moist mucous membranes Throat: Yes tonsils normal Eyes Conjunctivae: conjunctivae normal Pupils: Equal, round and reactive pupils present and Pupil accommodation reflex normal Direct Ophthalmoscopy: normal light reflex Neck Neck: No lymphadenopathy Thyroid: Thyroid normal Chest Chest palpation & inspection: normal inspection of the chest Resp Effort & Inspection: normal respiratory effort and no audible wheezes Auscultation: clear to auscultation bilaterally, no crackles, no wheezes and lung sounds not diminished Cardio Rate: regular rate Rhythm: regular rhythm Peripheral pulses: radial pulses present and dorsalis pedis present GI Other: guaiac negative Prostate Enlargedx Palpation (GI): no masses Auscultation: normal bowel sounds and normoactive bowel sounds Male General Exam: Yes normal external exam Skin General skin exam: no rashes or lesions noted Rashes: no rashes Neuro General: No confusion Cranial nerves: Yes Equal, round and reactive pupils present and Yes Normal hearing present Cognition (Neuro): normal cognition Gait exam (Neuro): Normal gait present Motor exam (neuro): 5/5 motor strength present throughout Deep tendon reflexes (DTR's): Right brachioradialis reflex intensity grade: 2+, Left brachioradialis reflex intensity grade: 2+, Right patellar reflex intensity grade: 2+ and Left patellar reflex intensity grade: 2+ Extrem General: No edema Coding Level of Care Code Est Pt Prev Care >65y(45682) Diagnoses Annual physical exam Z00.00 Impaired glucose tolerance R73.02 Hypercholesterolemia E78.00 Blood pressure elevated without history of HTN R03.0 Additional Codes STEPHON-7 Assessment Billing - STEPHON-7 Assessment Tool: STEPHON-7 Assessment 56808 ([id number]) PHQ-9 - 18747 - PHQ-9 Billing: Yes ([id number]) Assessment & Plan Assessment & Plan (1) Annual physical exam: Code(s): Z00.00 - Encounter for general adult medical examination without abnormal findings Category: Medical (2) Impaired glucose tolerance: Code(s): R73.02 - Impaired glucose tolerance (oral) Category: Medical (3) Hypercholesterolemia: Code(s): E78.00 - Pure hypercholesterolemia, unspecified Category: Medical (4) Blood pressure elevated without history of HTN: Code(s): R03.0 - Elevated blood-pressure reading, without diagnosis of hypertension Category: Medical Plan - Advise on sodium reduction to aid in blood pressure management. - Monitor blood pressure regularly; recommend compiling readings for review. - Follow-up with urology regarding benign prostatic hyperplasia management; possible additional diagnostics like pre- and post-void ultrasounds. - Consider auditory evaluation if hearing loss progresses significantly. - Recommend continued trazodone usage as needed for sleep, ensuring intermittent use to prevent dependency. During the visit, I emphasized the importance of managing essential hypertension through lifestyle modifications, particularly focusing on sodium intake reduc tion and regular blood pressure monitoring. I advised follow-up care with the patient's urologist for benign prostatic hyperplasia, acknowledging existing nocturia and urgency symptoms. We addressed potential hearing issues, with a recommendation for an evaluation if the problem worsens. For sleep-related concerns, I discussed the intermittent use of trazodone and its impact on mitigating disturbance. Follow-up was agreed upon, including systematic blood work and monitoring frequency. - Monitor and record your blood pressure at home regularly. - Reduce dietary salt intake. - Follow up with your urologist as scheduled. - Use trazodone sparingly for sleep disturbances. - Consult for hearing evaluation if hearing difficulties increase. - Schedule a follow-up appointment in three months or sooner if needed.
[2024-06-26 13:18] VITALS: BP 140/70; PULSE 80; O2SAT 98; BMI 26.0
== END 2024-06-26 14:15 | disposition home or self-care (01) ==
PROVIDERS: PCP Internal Medicine; Visit Provider Internal Medicine
DX: Z00.00 Encounter for general adult medical examination without abnormal findings (principal); R73.02 Impaired glucose tolerance (oral); E78.00 Pure hypercholesterolemia, unspecified; R03.0 Elevated blood-pressure reading, without diagnosis of hypertension

== ENCOUNTER → 2024-06-26 13:14 | Outpatient (BNVA) | payer MEDICARE, SELFPAY | PROVIDERS: PCP Internal Medicine; Visit Provider Internal Medicine | DX: Z00.00 Encounter for general adult medical examination without abnormal findings (principal); N40.1 Benign prostatic hyperplasia with lower urinary tract symptoms; R35.1 Nocturia; R39.15 Urgency of urination; R35.0 Frequency of micturition; R32 Unspecified urinary incontinence; R73.02 Impaired glucose tolerance (oral); E78.00 Pure hypercholesterolemia, unspecified; R03.0 Elevated blood-pressure reading, without diagnosis of hypertension | CPT/HCPCS: 96127; 99397 ==

== ENCOUNTER 2024-07-22 | Outpatient (REF) | payer MEDICARE, SELFPAY ==
[2024-01-28 15:18] VITALS: BMI 25.7
--- NOTE | 2024-07-21 11:02 | HO.ANESPROP2 ---
HPI - Anesthesia Eval Consult details Narrative: 78yo M for Colonoscopy PMFSH Active Problems Active Problems: All Active Problems Blood pressure elevated without history of HTN (Acute) Colon cancer screening (Acute) Sebaceous cyst (Acute) Erectile dysfunction (Acute) COVID-19 virus infection (Acute) Annual physical exam (Acute) Arthritis of right knee (Acute) Adult general medical exam (Acute) Insomnia (Acute) Ulnar neuropathy (Acute) Impaired glucose tolerance (Acute) Patient is Sabianist (Acute) BPH (benign prostatic hyperplasia) (Acute) Hypercholesterolemia (Acute) Past Medical History Medical History Pre-op examination Screening for diabetes mellitus Chest pain Hearing deficit Screening for prostate cancer Knee effusion, right Right knee pain Nipple pain Chest pain on exertion BPH (benign prostatic hyperplasia) Hypercholesterolemia Erectile dysfunction Insomnia Vitamin D deficiency History of subdural hematoma Family History Family History Father Kidney malignancy Mother CVD (cardiovascular disease) Brother No problems noted. Brother Heart disease Surgical History Surgical History History of colonoscopy Cataract Social History Social History (Updated 06/26/24 @ 14:01 by Jassi Wheat MD) Housing: House Alcohol intake: current Alcohol intake frequency: 0-2 drinks per day Alcohol type: beer Comment: once a week 1 drink Patient Tobacco Use Status: Never used Tobacco e-Cigarette/Vaping Use: Never Used Second Hand Smoke Exposure: No service: No Current occupational status: retired Current occupation: rt handed Cognitive needs: No Hearing needs: No Vision needs: No Meds Allergies Allergy/AdvReac Type Severity Reaction Status Date / Time Seasonal Allergies Allergy Mild itchy, Verified 06/26/24 13:21 watery eyes, nose. Home Medications ?Medication ?Instructions ?Recorded ?Confirmed ?Last Taken ?Type acetaminophen 500 mg capsule 1,000 mg PO Q6H PRN Pain 05/24/22 07/20/24 Unknown History Exam Height,Weight and Vital Signs: Height 5 ft 4 in Weight 68.039 kg Assessment and Plan Assessment Anesthesia Assessment: Chart Reviewed
== END 2024-07-22 00:01 | disposition home or self-care (01) ==
LOC: CF
PROVIDERS: PCP Internal Medicine; Visit Provider Internal Medicine
DX: I10 Essential (primary) hypertension (principal); Z78.9 Other specified health status
CPT/HCPCS: 96127; 99212

== ENCOUNTER 2024-07-22 10:23 | Outpatient (AMB) | payer MEDICARE, SELFPAY ==
[2024-07-22 10:48] VITALS: BP 142/72; PULSE 78; O2SAT 98; BMI 26.1
--- NOTE | 2024-07-22 10:48 | MHC.PC.OV ---
Vital Signs 07/22/24 10:48 07/22/24 11:13 Height 5 ft 4 in Weight 152 lb BMI 26.1 BP 142/72 H 152/80 H Blood Pressure Location Lt brachial Lt brachial Position Sitting Sitting Pulse 78 Pulse Source Pulse Oximeter Pulse Oximetry (%) 98 Oxygen Delivery Method Room Air Intake Visit Reasons: High BP Allergies Seasonal Allergies Allergy (Mild, Verified 07/22/24 10:49) itchy, watery eyes, nose. Tobacco use date assessed: 07/22/24 Fall risk assessment: No Falls in past year Last assessed Fall Risk: 07/22/24 Dental Screening Dental Screen Date: 07/22/24 Did you have a dental visit in the last 12 months?: Yes Did you have a dental problem in the last 6 months where you did not have access to dental care?: No Was dental information given to patient?: Patient has dentist HPI High BP HPI Details The patient is an 78-year-old male presenting with elevated blood pressure. He reports monitoring his blood pressure at home and at the pharmacy, with recorded readings reaching up to 180 mmHg systolic, which he notes as high. At a subsequent pharmacy visit, his blood pressure was measured at 152/80 mmHg. He acknowledges the need for medication as his blood pressure remains elevated, although he is unaware of significant changes in his condition. The patient also mentioned infrequent follow-up for blood tests despite previous recommendations, and he expressed a willingness to complete fasting blood work. The patient drinks one to two cups of coffee daily and is aware of the effects caffeine can have on his blood pressure. He has no significant prior interventions for this condition and requires initiation of antihypertensive therapy. COUNTS INCLUDE 234 BEDS AT THE [facility] Medical History (Updated 07/22/24 @ 11:11 by Jassi Wheat MD) Blood pressure elevated without history of HTN Hearing deficit Knee effusion, right Right knee pain BPH (benign prostatic hyperplasia) Hypercholesterolemia Erectile dysfunction Insomnia Vitamin D deficiency History of subdural hematoma Surgical History History of colonoscopy Cataract Family History Father Kidney malignancy Mother CVD (cardiovascular disease) Brother No problems noted. Brother Heart disease Social History (Updated 06/26/24 @ 14:01 by Jassi Wheat MD) Housing: House Alcohol intake: current Alcohol intake frequency: 0-2 drinks per day Alcohol type: beer Comment: once a week 1 drink Patient Tobacco Use Status: Never used Tobacco Tobacco use type: Cigarette e-Cigarette/Vaping Use: Never Used Second Hand Smoke Exposure: No service: No Current occupational status: retired Current occupation: rt handed Cognitive needs: No Hearing needs: No Vision needs: No Questionnaire PHQ-9 Over the last 2 weeks, how often have you been bothered by any of the following problems? 1. Little interest or pleasure in doing things: not at all 2. Feeling down, depressed, or hopeless: not at all 3. Trouble falling or staying asleep, or sleeping too much: several days 4. Feeling tired or having little energy: not at all 5. Poor appetite or overeating: not at all 6. Feeling bad about yourself - or that you are a failure or have let yourself or your family down: not at all 7. Trouble concentrating on things, such as reading the newspaper or watching television: not at all 8. Moving or speaking so slowly that other people could have noticed. Or the opposite - being so fidgety or restless that you have been moving around a lot more than usual: not at all 9. Thoughts that you would be better off or of hurting yourself in some way: not at all Total score: 1 Depression Screening Interpretation: Negative Depression Screening Done: Yes 00200 - PHQ-9 Billing: Yes Source: Developed by Drs. Brent Luque, Chrissy Ball, Daren Adams and colleagues, with an educational emir from [employer]. Thrive Questionnaire Date Thrive assessed: 07/22/24 I am a: Patient What is your living situation today?: I have a steady place to live Within the past 12 months, did the food you bought not last and you didn't have the money to get more?: Never true Within the past 12 months, did you worry whether your food would run out before you got money to buy more?: Never true Do you have trouble paying for medicines?: No Do you have trouble getting transportation to medical appointments?: No Do you have trouble paying your heating and electricity bill?: No Do you have trouble taking care of your child, family member or friend?: No Do you have trouble with day-to-day activities such as bathing, preparing meals, shopping, managing finances, etc.?: No Are you currently unemployed and looking for a job?: No Are you interested in more education?: No Currently or been in a relationship where the following occur: No concerns reported THRIVE Score: 0 AUDIT C Alcohol Use Questionnaire (AUDIT-C) 1. How often do you have a drink containing alcohol?: 2-3 times a week 2. How many drinks containing alcohol do you have on a typical day when you are drinking?: 1 or 2 3. How often do you have six or more drinks on one occasion?: Never Total Score: 3 STEPHON-7 AMB Questionnaire STEPHON-7 Date STEPHON - 7 assessed: 07/22/24 Feeling nervous, anxious, or on edge: 0 = Not at all Not being able to stop or control worryin = Not at all Worrying too much about different things: 0 = Not at all Trouble relaxin = Not at all Being so restless that it is hard to sit still: 0 = Not at all Becoming easily annoyed or irritable: 0 = Not at all Feeling afraid as if something awful might happen: 0 = Not at all Total STEPHON-7 score (0-4 normal; 5-9 mild; 10-14 moderate; 15-21 severe): 0 Source: Developed by Drs. Brent Luque, Chrissy Ball, Daren Adams and colleagues, with an educational emir from [employer]. STEPHON-7 Assessment Billing STEPHON-7 Assessment Tool: STEPHON-7 Assessment 14530 Physical exam (Primary Care) Vital Signs: Last Vital Signs Pulse 78 07/22/24 10:48 BP 142/72 H 07/22/24 10:48 Pulse Ox 98 07/22/24 10:48 Oxygen Delivery Method Room Air 07/22/24 10:48 BMI result Body Mass Index 26.1 Tobacco/Smoking Status: Tobacco use Status Tobacco use date assessed 07/22/24 07/22/24 10:54 Patient Tobacco Use Status Never used Tobacco 07/22/24 10:54 Tobacco use type Cigarette 07/22/24 10:54 e-Cigarette/Vaping Use Never Used 07/22/24 10:54 PHQ-9: PHQ-9 Score PHQ-9: Total score 1 07/22/24 10:54 Depression Screening Interpretation: Negative Thrive Assessment: Date of Thrive Assessment Date Thrive assessed 07/22/24 07/22/24 10:54 Currently or been in a relationship where the following occur: No concerns reported Const General: alert and awake HENMT Head: Yes normocephalic Ears: external ears normal and TM's normal bilaterally Face and sinus: Yes normal facial exam Mouth: moist mucous membranes Throat: Yes tonsils normal Eyes Conjunctivae: conjunctivae normal Pupils: Equal, round and reactive pupils present and Pupil accommodation reflex normal Direct Ophthalmoscopy: normal light reflex Neck Neck: No lymphadenopathy Thyroid: Thyroid normal Chest Chest palpation & inspection: normal inspection of the chest Resp Effort & Inspection: normal respiratory effort and no audible wheezes Auscultation: clear to auscultation bilaterally, no crackles, no wheezes and lung sounds not diminished Cardio Rate: regular rate Rhythm: regular rhythm Peripheral pulses: radial pulses present and dorsalis pedis present GI Palpation (GI): no masses Auscultation: normal bowel sounds and normoactive bowel sounds Rectal Exam - Male: Yes deferred Skin General skin exam: no rashes or lesions noted Rashes: no rashes Neuro General: deep tendon reflexes 2+ bilaterally Cranial nerves: Yes Equal, round and reactive pupils present, Yes Midline tongue present and Yes Ability to bilaterally elevate shoulders present Cognition (Neuro): normal cognition Gait exam (Neuro): Normal gait present Motor exam (neuro): 5/5 motor strength present throughout Deep tendon reflexes (DTR's): Right brachioradialis reflex intensity grade: 2+, Left brachioradialis reflex intensity grade: 2+, Right patellar reflex intensity grade: 2+ and Left patellar reflex intensity grade: 2+ Extrem General: No edema Coding Level of Care Code Est Pt Level 3 (02866) Diagnoses Hypertension I10 Patient is Restoration Z78.9 Colon cancer screening Z12.11 Additional Codes STEPHON-7 Assessment Billing - STEPHON-7 Assessment Tool: STEPHON-7 Assessment 75209 ([id number]) PHQ-9 - 62910 - PHQ-9 Billing: Yes ([id number]) Assessment & Plan Assessment & Plan (1) Hypertension: Code(s): I10 - Essential (primary) hypertension Category: Medical (2) Patient is Restoration: Code(s): Z78.9 - Other specified health status Category: Medical (3) Colon cancer screening: Code(s): Z12.11 - Encounter for screening for malignant neoplasm of colon Category: Medical Plan - Initiate antihypertensive medication for management of essential hypertension. - Perform fasting blood work approximately one to two weeks after starting antihypertensive therapy to monitor renal function. - Advise reducing salt intake as part of dietary modification to manage hypertension. - Recommend limiting caffeine intake, especially before blood pressure measurements. - Schedule follow-up appointment in six weeks to evaluate blood pressure control and the effectiveness of therapy. - Advise the patient to resume discussions regarding a previously planned colonoscopy and continue monitoring for any related issues. Medications: New lisinopril 5 mg PO DAILY 30 tabs 4RF I10 - Essential (primary) hypertension
[2024-07-22 11:13] VITALS: BP 152/80
== END 2024-07-22 11:23 | disposition home or self-care (01) ==
PROVIDERS: PCP Internal Medicine; Visit Provider Internal Medicine
DX: I10 Essential (primary) hypertension (principal); Z78.9 Other specified health status; Z12.11 Encounter for screening for malignant neoplasm of colon

== ENCOUNTER 2024-11-20 14:05 | Outpatient (AMB) | payer MEDICARE, SELFPAY ==
--- NOTE | 2024-11-20 14:11 | MHC.PC.OV ---
Vital Signs 11/20/24 14:12 Height 5 ft 4 in Weight 144 lb BMI 24.7 BP 120/68 Blood Pressure Location Lt brachial Position Sitting Pulse 79 Pulse Source Pulse Oximeter Temp 97.1 F Temp Source Temporal Artery Scan Pulse Oximetry (%) 97 Oxygen Delivery Method Room Air Intake Visit Reasons: depressed Intake Note: Patient is here to follow up on Depressed. Food Service Specialist Required: No Patch Finisher: Not Required per policy Accompanied by: Self / Same As Patient Allergies Seasonal Allergies Allergy (Mild, Verified 11/20/24 14:17) itchy, watery eyes, nose. lisinopril Adverse Reaction (Mild, Verified 11/20/24 14:35) Cough Medication List - Last Reconciled 11/20/24 by Shelly Brunson PA-C acetaminophen 1,000 mg PO Q6H PRN bisacodyl (Dulcolax (bisacodyl)) 20 mg (4 x 5 mg) PO ONCE 1 day blood pressure monitor (Blood Pressure Kit) As directed lisinopril 5 mg PO DAILY melatonin 10 mg PO BEDTIME PRN trazodone 100 mg PO BEDTIME PRN Tobacco use date assessed: 11/20/24 Fall risk assessment: No Falls in past year Last assessed Fall Risk: 11/20/24 Dental Screening Dental Screen Date: 07/22/24 HPI depressed HPI Details 79-year-old male with past medical history of hypercholesterolemia, BPH, impaired glucose tolerance, insomnia, hypertension las seen 07/[address] Wheat coming in for acute problem. Presenting with a primary complaint of chronic cough. Cough has been persistent over several weeks with no improvement. Reports no fever, chills, night sweats, or shortness of breath. Concerns about memory include frequent forgetfulness and difficulty recalling specifics. Hypertension managed by Lisinopril, which may be linked to current cough. Allergy symptoms potentially aggravating the cough, no regular allergy medication use reported. [facility] Medical History Blood pressure elevated without history of HTN Hearing deficit Knee effusion, right Right knee pain BPH (benign prostatic hyperplasia) Hypercholesterolemia Erectile dysfunction Insomnia Vitamin D deficiency History of subdural hematoma Surgical History History of colonoscopy Cataract Family History Father Kidney malignancy Mother CVD (cardiovascular disease) Brother No problems noted. Brother Heart disease Social History Housing: House Alcohol intake: current Alcohol intake frequency: does not drink Alcohol type: beer Comment: once a week 1 drink Patient Tobacco Use Status: Never used Tobacco Tobacco use type: Cigarette e-Cigarette/Vaping Use: Never Used Second Hand Smoke Exposure: No service: No Current occupational status: retired Current occupation: rt handed Cognitive needs: No Hearing needs: No Vision needs: No Questionnaire PHQ-9 Over the last 2 weeks, how often have you been bothered by any of the following problems? 1. Little interest or pleasure in doing things: not at all 2. Feeling down, depressed, or hopeless: several days 3. Trouble falling or staying asleep, or sleeping too much: several days 4. Feeling tired or having little energy: several days 5. Poor appetite or overeating: not at all 6. Feeling bad about yourself - or that you are a failure or have let yourself or your family down: not at all 7. Trouble concentrating on things, such as reading the newspaper or watching television: several days 8. Moving or speaking so slowly that other people could have noticed. Or the opposite - being so fidgety or restless that you have been moving around a lot more than usual: nearly every day 9. Thoughts that you would be better off or of hurting yourself in some way: not at all Total score: 7 Depression Screening Interpretation: Positive Depression Screening Follow-up: Declines treatment Depression Screening Done: Yes Source: Developed by Drs. Brent Luque, Chrissy Ball, Daren Adams and colleagues, with an educational emir from [employer]. Thrive Questionnaire Date Thrive assessed: 07/22/24 I am a: Patient What is your living situation today?: I have a steady place to live Within the past 12 months, did the food you bought not last and you didn't have the money to get more?: Never true Within the past 12 months, did you worry whether your food would run out before you got money to buy more?: Never true Do you have trouble paying for medicines?: No Do you have trouble getting transportation to medical appointments?: No Do you have trouble paying your heating and electricity bill?: No Do you have trouble taking care of your child, family member or friend?: No Do you have trouble with day-to-day activities such as bathing, preparing meals, shopping, managing finances, etc.?: No Are you currently unemployed and looking for a job?: No Are you interested in more education?: No Please select the resources that you would like help with: None Currently or been in a relationship where the following occur: No concerns reported THRIVE Score: 0 AUDIT C Alcohol Use Questionnaire (AUDIT-C) 1. How often do you have a drink containing alcohol?: Never Total Score: 0 STEPHON-7 AMB Questionnaire STEPHON-7 Date STEPHON - 7 assessed: 11/20/24 Feeling nervous, anxious, or on edge: 1 = Several days Not being able to stop or control worryin = Not at all Worrying too much about different things: 0 = Not at all Trouble relaxin = Not at all Being so restless that it is hard to sit still: 0 = Not at all Becoming easily annoyed or irritable: 0 = Not at all Feeling afraid as if something awful might happen: 0 = Not at all Total STEPHON-7 score (0-4 normal; 5-9 mild; 10-14 moderate; 15-21 severe): 1 Source: Developed by Drs. Brent Luque, Chrissy Ball, Daren Adams and colleagues, with an educational emir from [employer]. Review of Systems Const Denies body aches, Denies chills, Denies fever(s), Denies headache(s) and Denies poor appetite Eyes Reports no additional complaints ENT Denies dizziness and Denies headache(s) Card Denies chest pain and Denies dyspnea Resp Reports cough, Denies hemoptysis, Denies excessive phlegm production, Denies pain with cough and Denies dyspnea GI Denies abdominal pain, Denies nausea and Denies vomiting Reports no additional complaints Musc Reports no additional complaints and Denies abnormal gait Skin/Breast Reports system reviewed and no additional complaints, except as documented Neuro Denies abnormal gait, Denies dizziness and Denies headache(s) Psych Reports no additional complaints Physical exam (Primary Care) Vital Signs: Last Vital Signs Temp 97.1 F 11/20/24 14:12 Pulse 79 11/20/24 14:12 BP 120/68 11/20/24 14:12 Pulse Ox 97 11/20/24 14:12 Oxygen Delivery Method Room Air 11/20/24 14:12 BMI result Body Mass Index 24.7 Tobacco/Smoking Status: Tobacco use Status Tobacco use date assessed 11/20/24 11/20/24 14:15 Patient Tobacco Use Status Never used Tobacco 11/20/24 14:15 Tobacco use type Cigarette 11/20/24 14:15 e-Cigarette/Vaping Use Never Used 11/20/24 14:15 PHQ-9: PHQ-9 Score PHQ-9: Total score 7 11/20/24 14:25 Depression Screening Interpretation: Positive Depression Screening Follow-up: Declines treatment Thrive Assessment: Date of Thrive Assessment Date Thrive assessed 07/22/24 11/20/24 14:15 Currently or been in a relationship where the following occur: No concerns reported Const General: cooperative, healthy appearing, comfortable and no acute distress Orientation/consciousness: patient oriented x3 HENMT Head: Yes normocephalic Ears: hearing grossly normal bilaterally General nose exam: Normal external nose present Eyes General: appearance normal, both eyes and all related structures Conjunctivae: conjunctivae normal Neck Neck: Yes full ROM and Yes no lymphadenopathy Resp Effort & Inspection: normal respiratory effort Auscultation: clear to auscultation bilaterally, no crackles, no rales, no rhonchi and no wheezes Cardio Rate: regular rate Rhythm: regular rhythm Skin General skin exam: no rashes or lesions noted Neuro General: patient oriented x3 Gait exam (Neuro): Normal gait present Extrem General: Yes normal to inspection, Yes full ROM and No edema Psych Affect: normal affect Attitude: cooperative Insight: Good insight present (Psych) Judgement: Good judgement present (Psych) Coding Level of Care Code Est Pt Level 3 (42451) Diagnoses Hypertension I10 Dry cough R05.8 Memory impairment R41.3 Assessment & Plan Assessment & Plan (1) Hypertension: Code(s): I10 - Essential (primary) hypertension Category: Medical Plan: Continue on current blood pressure medication. Avoid salt intake and encourage healthy diet and regular exercise. At this time given presence of dry cough for the last several weeks plan to discontinue lisinopril 5 mg and start on losartan 25 mg. Patient understands and agrees. Plan to follow up at next visit for blood pressure check (2) Dry cough: Code(s): R05.8 - Other specified cough Category: Medical Plan: Maybe multiple underlying etiologies contributing to patient's chronic cough including but not limited to allergies, use of lisinopril and upper respiratory virus. Patient has been having ongoing dry cough without any other symptoms for several weeks. The patient will discontinue Lisinopril and begin Losartan, as the chronic cough is suspected to be related to Lisinopril. To address potential allergies affecting his cough, regular use of an antihistamine such as Claritin was recommended. Continued monitoring of symptoms and evaluation at the next appointment will be important to ensure the patient's overall health. Benzonatate was also prescribed at patient request. (3) Memory impairment: Code(s): R41.3 - Other amnesia Category: Medical Plan: Patient has scored a 26/30 on MMSE in the office today, consistent with normal exam. At this time we will continue to monitor patient's mental status and can consider referral to Neurology. Plan This note was constructed using voice recognition software. While every effort has been made to ensure accuracy and tram inspector, still areas may have been included sometimes these areas may affect the content or meeting of the given symptoms. Total time spent caring for the patient today was 20 minutes. This includes time spent before the visit reviewing the chart, time spent during the visit, and time spent after the visit and documentation. Patient was informed and verbally consented to the use of an ambient scribe for clinic note documentation during this visit. Medications: New losartan 25 mg PO DAILY 30 tabs 2RF benzonatate 100 mg PO BID PRN 20 caps 0RF cough Discontinued lisinopril Discontinued Reason: Patient no longer taking 5 mg PO DAILY 30 tabs 4RF I10 - Essential (primary) hypertension
[2024-11-20 14:12] VITALS: BP 120/68; PULSE 79; TEMP 36.2; O2SAT 97; BMI 24.7
== END 2024-11-20 14:39 | disposition home or self-care (01) ==
LOC: HO.HMCH 14:06
PROVIDERS: PCP Internal Medicine
DX: I10 Essential (primary) hypertension (principal); R05.8 Other specified cough; R41.3 Other amnesia

== ENCOUNTER → 2024-11-20 14:05 | Outpatient (BNVA) | payer MEDICARE, SELFPAY | PROVIDERS: PCP Internal Medicine | DX: I10 Essential (primary) hypertension (principal); R05.8 Other specified cough; R41.3 Other amnesia | CPT/HCPCS: 99212 ==

== ENCOUNTER 2024-12-24 15:10 | Outpatient (AMB) | payer MEDICARE, SELFPAY ==
--- NOTE | 2024-12-24 15:13 | A.OFFPC_ITS ---
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 lisinopril Adverse Reaction (Mild, Verified 12/24/24 15:15) Cough Medication List - Last Reconciled 12/24/24 by Jassi Wheat MD acetaminophen 1,000 mg PO Q6H PRN bisacodyl (Dulcolax (bisacodyl)) 20 mg (4 x 5 mg) PO ONCE 1 day blood pressure monitor (Blood Pressure Kit) As directed losartan 25 mg PO DAILY melatonin 10 mg PO BEDTIME PRN trazodone 100 mg PO BEDTIME PRN Tobacco use date assessed: 12/24/24 Fall risk assessment: No Falls in past year Last assessed Fall Risk: 12/24/24 Dental Screening Dental Screen Date: 12/24/24 Did you have a dental visit in the last 12 months?: No Did you have a dental problem in the last 6 months where you did not have access to dental care?: No Was dental information given to patient?: No [facility] Medical History Blood pressure elevated without history of HTN Hearing deficit Knee effusion, right Right knee pain BPH (benign prostatic hyperplasia) Hypercholesterolemia Erectile dysfunction Insomnia Vitamin D deficiency History of subdural hematoma Surgical History History of colonoscopy Cataract Family History Father Kidney malignancy Mother CVD (cardiovascular disease) Brother No problems noted. Brother Heart disease Social History Housing: House Alcohol intake: current Alcohol intake frequency: does not drink Alcohol type: beer Comment: once a week 1 drink Patient Tobacco Use Status: Never used Tobacco Tobacco use type: Cigarette e-Cigarette/Vaping Use: Never Used Second Hand Smoke Exposure: No service: No Current occupational status: retired Current occupation: rt handed Cognitive needs: No Hearing needs: No Vision needs: No Questionnaire PHQ-9 Over the last 2 weeks, how often have you been bothered by any of the following problems? 1. Little interest or pleasure in doing things: not at all 2. Feeling down, depressed, or hopeless: several days 3. Trouble falling or staying asleep, or sleeping too much: several days 4. Feeling tired or having little energy: several days 5. Poor appetite or overeating: not at all 6. Feeling bad about yourself - or that you are a failure or have let yourself or your family down: not at all 7. Trouble concentrating on things, such as reading the newspaper or watching television: several days 8. Moving or speaking so slowly that other people could have noticed. Or the opposite - being so fidgety or restless that you have been moving around a lot more than usual: nearly every day 9. Thoughts that you would be better off or of hurting yourself in some way: not at all Total score: 7 Depression Screening Interpretation: Positive Depression Screening Follow-up: Declines treatment Depression Screening Done: Yes Source: Developed by Drs. Brent Luque, Chrissy Ball, Daren Adams and colleagues, with an educational emir from [employer]. Thrive Questionnaire Date Thrive assessed: 12/24/24 I am a: Patient What is your living situation today?: I have a steady place to live Within the past 12 months, did the food you bought not last and you didn't have the money to get more?: Never true Within the past 12 months, did you worry whether your food would run out before you got money to buy more?: Never true Do you have trouble paying for medicines?: No Do you have trouble getting transportation to medical appointments?: No Do you have trouble paying your heating and electricity bill?: No Do you have trouble taking care of your child, family member or friend?: No Do you have trouble with day-to-day activities such as bathing, preparing meals, shopping, managing finances, etc.?: No Are you currently unemployed and looking for a job?: No Are you interested in more education?: No Please select the resources that you would like help with: None Currently or been in a relationship where the following occur: No concerns reported THRIVE Score: 0 AUDIT C Alcohol Use Questionnaire (AUDIT-C) 1. How often do you have a drink containing alcohol?: Never 3. How often do you have six or more drinks on one occasion?: Never Total Score: 0 STEPHON-7 AMB Questionnaire STEPHON-7 Date STEPHON - 7 assessed: 12/24/24 Feeling nervous, anxious, or on edge: 1 = Several days Not being able to stop or control worryin = Not at all Worrying too much about different things: 0 = Not at all Trouble relaxin = Not at all Being so restless that it is hard to sit still: 0 = Not at all Becoming easily annoyed or irritable: 0 = Not at all Feeling afraid as if something awful might happen: 0 = Not at all Total STEPHON-7 score (0-4 normal; 5-9 mild; 10-14 moderate; 15-21 severe): 1 Source: Developed by Drs. Brent Luque, Chrissy Ball, Daren Adams and colleagues, with an educational emir from [employer]. Physical exam (Primary Care) Vital Signs: Last Vital Signs Pulse 80 12/24/24 15:14 BP 130/60 12/24/24 15:14 Pulse Ox 96 12/24/24 15:14 Oxygen Delivery Method Room Air 12/24/24 15:14 BMI result Body Mass Index 25.5 Tobacco/Smoking Status: Tobacco use Status Tobacco use date assessed 12/24/24 12/24/24 15:23 Patient Tobacco Use Status Never used Tobacco 12/24/24 15:23 Tobacco use type Cigarette 12/24/24 15:23 e-Cigarette/Vaping Use Never Used 12/24/24 15:23 PHQ-9: PHQ-9 Score PHQ-9: Total score 7 12/24/24 15:45 Depression Screening Interpretation: Positive Depression Screening Follow-up: Declines treatment Thrive Assessment: Date of Thrive Assessment Date Thrive assessed 12/24/24 12/24/24 15:23 Currently or been in a relationship where the following occur: No concerns reported Const General: alert; No acute distress Eyes Conjunctivae: conjunctivae normal Resp Auscultation: clear to auscultation bilaterally Cardio Rate: regular rate Rhythm: regular rhythm GI Inspection: Yes normal to inspection Extrem General: Yes normal to inspection and No edema Coding Level of Care Code Est Pt Level 4 (32589) Complex EM visit Add On G2211 Diagnoses Hypertension I10 Hypercholesterolemia E78.00 Impaired glucose tolerance R73.02 BPH (benign prostatic hyperplasia) N40.0 Assessment & Plan Assessment & Plan (1) Hypertension: Code(s): I10 - Essential (primary) hypertension Category: Medical Plan: Continue with blood pressure medication. Decrease salt intake and exercise patient on losartan 25 mg once a day need blood work (2) Hypercholesterolemia: Code(s): E78.00 - Pure hypercholesterolemia, unspecified Category: Medical Plan: Avoid fried foods, chicken skin, eggs, butter margarine, pastries and meat. Be it pork or beef they have a lot of cholesterol LDL goal of less than 130 and triglyceride of less than 150. Patient needs blood work (3) Impaired glucose tolerance: Code(s): R73.02 - Impaired glucose tolerance (oral) Category: Medical Plan: Decrease the amount of carbohydrate intake, pasta, bread, rice and potatoes are all sugar and that is aside from all the sweet stuff, remember that fruits are good but they are Sweet also. Patient does need to have blood work done (4) BPH (benign prostatic hyperplasia): Code(s): N40.0 - Benign prostatic hyperplasia without lower urinary tract symptoms Category: Medical Plan: Patient follows up with urology unstable. Plan History of Present Illness The patient is an 79-year-old male presenting for a follow-up visit to manage chronic conditions including hypertension, hypercholesterolemia, and benign prostatic hyperplasia. The patient has a history of benign prostatic hyperplasia, for which he follows up with urology. He was last seen by urology on August 17 for this condition. He reports no significant urinary issues at present. The patient has been diagnosed with hypercholesterolemia and is currently on a management plan to maintain LDL cholesterol levels below 130 mg/dL and triglycerides below 150 mg/dL. He has not had blood work done in the past two years, which is necessary to monitor his cholesterol levels. The patient has hypertension and is currently taking losartan 25 mg once daily. He was previously on lisinopril but developed a cough, indicating an allergy to the medication, and was switched to losartan. He has not had recent blood pressure monitoring due to the lack of recent blood work. The patient also has impaired glucose tolerance, which requires monitoring through blood work. He has not had any recent blood work to assess his glucose levels. Health Maintenance - Blood work: Required for monitoring cholesterol, glucose levels, and hypertension management Social History Review of Systems - Respiratory: Denies cough currently, previously had cough due to lisinopril - Genitourinary: Reports no significant urinary issues currently - Neurological: Denies hearing problems, although family comments on hearing Physical Exam - Cardiovascular: Heart sounds auscultated, no abnormalities noted - Respiratory: Lungs auscultated, no cough present Results Plan The patient requires blood work to monitor his cholesterol levels, glucose to lerance, and hypertension management. This is crucial as he has not had blood work done in the past two years, which is necessary for effective management of his conditions. For hypertension, the patient is currently on losartan 25 mg once daily, having been switched from lisinopril due to a cough. It is important to continue monitoring his blood pressure and adjust medications as needed based on future blood work results. The patient should continue following up with urology for his benign prostatic hyperplasia, as he was last seen in August. Regular monitoring and management are necessary to prevent complications. Patient was informed and verbally consented to the use of an ambient scribe for clinic note documentation during this visit. Discussion Notes I discussed with the patient the importance of completing blood work to monitor his cholesterol, glucose levels, and hypertension. We reviewed his current medication regimen, emphasizing the switch from lisinopril to losartan due to a cough. I advised him to continue his follow-up with urology for benign prostatic hyperplasia and to ensure regular monitoring of his conditions to prevent complications. Patient Instructions - Complete blood work as soon as possible to monitor cholesterol, glucose levels, and blood pressure. - Continue taking losartan 25 mg once daily and avoid lisinopril due to previous allergic reaction. - Follow up with urology for benign prostatic hyperplasia management. Medications: Refilled losartan 25 mg PO DAILY 90 tabs 1RF trazodone 100 mg PO BEDTIME PRN 90 tabs 1RF sleep G47.00 - Insomnia, unspecified
[2024-12-24 15:14] VITALS: BP 130/60; PULSE 80; O2SAT 96; BMI 25.5
== END 2024-12-24 16:04 | disposition home or self-care (01) ==
PROVIDERS: PCP Internal Medicine; Visit Provider Internal Medicine
DX: I10 Essential (primary) hypertension (principal); E78.00 Pure hypercholesterolemia, unspecified; R73.02 Impaired glucose tolerance (oral); N40.0 Benign prostatic hyperplasia without lower urinary tract symptoms

== ENCOUNTER → 2024-12-24 15:10 | Outpatient (BNVA) | payer MEDICARE, SELFPAY | PROVIDERS: PCP Internal Medicine; Visit Provider Internal Medicine | DX: I10 Essential (primary) hypertension (principal); E78.00 Pure hypercholesterolemia, unspecified; R73.02 Impaired glucose tolerance (oral); N40.0 Benign prostatic hyperplasia without lower urinary tract symptoms; Z79.899 Other long term (current) drug therapy | CPT/HCPCS: 99212 ==

== ENCOUNTER 2024-12-29 06:16 | Outpatient (REF) | payer MEDICARE, SELFPAY ==
[2024-12-29 06:25] LABS: MANUAL DIFF FLAG NO
[2024-12-29 07:21] LABS: Basophils Absolute Auto 0.1 X10*3/uL (0.0-0.2); Basophils Percent Auto 0.7 % (0-2); Eosinophils Absolute Auto 0.5 X10*3/uL (0.0-0.4); Eosinophils Percent Auto 4.9 % (0-4); Hematocrit 38.9 % (42.0-52.0); Imm Gran Abs Auto 0.05 X10*3/uL (0.00-0.03); Imm Gran Pct Auto 0.5 % (0.0-0.4); Lymphocytes Absolute Auto 2.4 X10*3/uL (1.2-4.9); Lymphocytes Percent Auto 22.2 % (20-40); Mean Corpuscular HGB Conc 33.4 g/dl (31.0-36.0); Mean Corpuscular Hemoglobin 30.2 pg (27.0-33.0); Mean Corpuscular Volume 90.3 fL (80.0-98.0); Mean Platelet Volume 10.4 fL (9.4-12.4); Monocytes Absolute Auto 1.1 X10*3/uL (0.1-1.2); Monocytes Percent Auto 10.7 % (2-11); Neutrophils Absolute Auto 6.5 x10*3/uL (2.0-8.3); Platelet Count 293 X10*3/uL (160-400); Red Blood Count 4.31 X10*6/uL (4.60-5.80); Red Cell Distribution Width 13.1 % (11.0-16.0); White Blood Count 10.6 X10*3/uL (4.8-10.8)
[2024-12-29 07:29] LABS: Estimated Average Glucose 120 mg/dL; Hemoglobin A1c % 5.8 % (<6.0); Total Hemoglobin (HGBA1C) 3482.1811 umol/L
[2024-12-29 08:04] LABS: Alanine Aminotransferase 23 U/L (0-40); Albumin Level 4.3 g/dL (3.5-5.0); Alkaline Phosphatase 77 U/L (39-117); Anion Gap 12 (12-20); Aspartate Amino Transferase 31 U/L (5-37); Bilirubin Total 0.4 mg/dL (0.0-1.0); Blood Urea Nitrogen 15 mg/dL (9-16); Calcium 10.1 mg/dL (8.4-10.2); Carbon Dioxide 24 mmol/L (22-29); Chloride 110 mmol/L (96-108); Cholesterol 190 mg/dL (<200); Estimated Glomerular Filt Rate > 60; Glucose Random 97 mg/dL (60-115); HDL Cholesterol 42 mg/dL (>40); LDL Cholesterol Calculated 129 mg/dL (<100); Potassium 3.9 mmol/L (3.3-5.1); Sodium 142 mmol/L (135-145); Total Protein 6.9 g/dL (6.5-8.0); Triglycerides 98 mg/dL (<150)
[2024-12-29 08:09] LABS: Free T4 (Free Thyroxine) 1.05 ng/dL (0.71-1.85); Thyroid Stimulating Hormone 1.71 uIU/mL (0.32-4.0)
[2024-12-29 08:16] LABS: Folate 6.5 ng/mL (> or = 4.0); Vitamin B12 427 pg/mL (200-900)
== END 2024-12-29 06:17 | disposition home or self-care (01) ==
LOC: HO.LAB 06:16
PROVIDERS: PCP Internal Medicine; Visit Provider Internal Medicine
DX: R73.02 Impaired glucose tolerance (oral) (principal); E78.00 Pure hypercholesterolemia, unspecified
CPT/HCPCS: 36415; 80053; 80061; 82607; 82746; 83036; 84439; 84443; 85025

== ENCOUNTER 2025-02-04 08:47 | Outpatient (AMB) | payer MEDICARE, SELFPAY ==
--- NOTE | 2025-02-04 08:49 | A.OFFPC_ITS ---
Vital Signs 02/04/25 08:50 Height 5 ft 4 in Weight 148 lb 4 oz BMI 25.4 BP 140/80 H Blood Pressure Location Lt brachial Position Sitting Respiration 18 Pulse 66 Pulse Source Pulse Oximeter Temp 97.3 F Temp Source Temporal Artery Scan Pulse Oximetry (%) 97 Oxygen Delivery Method Room Air Intake Visit Reasons: Neurology Request Allergies Seasonal Allergies Allergy (Mild, Verified 02/04/25 08:53) itchy, watery eyes, nose. lisinopril Adverse Reaction (Mild, Verified 02/04/25 08:53) Cough Tobacco use date assessed: 02/04/25 Fall risk assessment: No Falls in past year Last assessed Fall Risk: 02/04/25 Dental Screening Dental Screen Date: 02/04/25 Did you have a dental visit in the last 12 months?: No Did you have a dental problem in the last 6 months where you did not have access to dental care?: No Was dental information given to patient?: Patient has dentist HPI Neurology Request HPI Details sob, 1 month states on bending to tie shoes gets sob. biut patient can go up a flight of stairs with no sob. complains of memory problem MMSE PFSH Medical History Blood pressure elevated without history of HTN Hearing deficit Knee effusion, right Right knee pain BPH (benign prostatic hyperplasia) Hypercholesterolemia Erectile dysfunction Insomnia Vitamin D deficiency History of subdural hematoma Surgical History History of colonoscopy Cataract Family History Father Kidney malignancy Mother CVD (cardiovascular disease) Brother No problems noted. Brother Heart disease Social History Housing: House Alcohol intake: current Alcohol intake frequency: does not drink Alcohol type: beer Comment: once a week 1 drink Patient Tobacco Use Status: Never used Tobacco e-Cigarette/Vaping Use: Never Used Second Hand Smoke Exposure: No service: No Current occupational status: retired Current occupation: rt handed Cognitive needs: No Hearing needs: No Vision needs: No Questionnaire PHQ-9 Over the last 2 weeks, how often have you been bothered by any of the following problems? 1. Little interest or pleasure in doing things: not at all 2. Feeling down, depressed, or hopeless: several days 3. Trouble falling or staying asleep, or sleeping too much: several days 4. Feeling tired or having little energy: several days 5. Poor appetite or overeating: not at all 6. Feeling bad about yourself - or that you are a failure or have let yourself or your family down: not at all 7. Trouble concentrating on things, such as reading the newspaper or watching television: several days 8. Moving or speaking so slowly that other people could have noticed. Or the o pposite - being so fidgety or restless that you have been moving around a lot more than usual: nearly every day 9. Thoughts that you would be better off or of hurting yourself in some way: not at all Total score: 7 Depression Screening Interpretation: Positive Depression Screening Follow-up: Declines treatment Depression Screening Done: Yes Source: Developed by Drs. Brent Luque, Chrissy Ball, Daren Adams and colleagues, with an educational emir from [employer] Thrive Questionnaire Date Thrive assessed: 11/20/24 I am a: Patient What is your living situation today?: I have a steady place to live Within the past 12 months, did the food you bought not last and you didn't have the money to get more?: Never true Within the past 12 months, did you worry whether your food would run out before you got money to buy more?: Never true Do you have trouble paying for medicines?: No Do you have trouble getting transportation to medical appointments?: No Do you have trouble paying your heating and electricity bill?: No Do you have trouble taking care of your child, family member or friend?: No Do you have trouble with day-to-day activities such as bathing, preparing meals, shopping, managing finances, etc.?: No Are you currently unemployed and looking for a job?: No Are you interested in more education?: No Please select the resources that you would like help with: None Currently or been in a relationship where the following occur: No concerns reported THRIVE Score: 0 AUDIT C Alcohol Use Questionnaire (AUDIT-C) 1. How often do you have a drink containing alcohol?: Never 3. How often do you have six or more drinks on one occasion?: Never Total Score: 0 STEPHON-7 AMB Questionnaire STEPHON-7 Date STEPHON - 7 assessed: 12/24/24 Feeling nervous, anxious, or on edge: 1 = Several days Not being able to stop or control worryin = Not at all Worrying too much about different things: 0 = Not at all Trouble relaxin = Not at all Being so restless that it is hard to sit still: 0 = Not at all Becoming easily annoyed or irritable: 0 = Not at all Feeling afraid as if something awful might happen: 0 = Not at all Total STEPHON-7 score (0-4 normal; 5-9 mild; 10-14 moderate; 15-21 severe): 1 Source: Developed by Drs. Brent Luque, Chrissy Ball, Daren Adams and colleagues, with an educational emir from [employer] Physical exam (Primary Care) Vital Signs: Last Vital Signs Temp 97.3 F 02/04/25 08:50 Pulse 66 02/04/25 08:50 Resp 18 02/04/25 08:50 BP 140/80 H 02/04/25 08:50 Pulse Ox 97 02/04/25 08:50 Oxygen Delivery Method Room Air 02/04/25 08:50 BMI result Body Mass Index 25.4 Tobacco/Smoking Status: Tobacco use Status Tobacco use date assessed 02/04/25 02/04/25 08:54 Patient Tobacco Use Status Never used Tobacco 02/04/25 08:49 Tobacco use type 02/04/25 08:54 e-Cigarette/Vaping Use Never Used 02/04/25 08:49 PHQ-9: PHQ-9 Score PHQ-9: Total score 7 02/04/25 17:30 Depression Screening Interpretation: Positive Depression Screening Follow-up: Declines treatment Thrive Assessment: Date of Thrive Assessment Date Thrive assessed 11/20/24 02/04/25 08:49 Currently or been in a relationship where the following occur: No concerns reported Const General: alert; No acute distress Eyes Conjunctivae: conjunctivae normal Resp Auscultation: clear to auscultation bilaterally Cardio Rate: regular rate Rhythm: regular rhythm GI Inspection: Yes normal to inspection Extrem General: Yes normal to inspection and No edema Coding Level of Care Code Est Pt Level 4 (14610) Complex EM visit Add On G2211 Diagnoses Hypertension I10 Hypercholesterolemia E78.00 Impaired glucose tolerance R73.02 BPH (benign prostatic hyperplasia) N40.0 SOB (shortness of breath) R06.02 Cognitive change R41.89 Assessment & Plan Assessment & Plan (1) Hypertension: Code(s): I10 - Essential (primary) hypertension Category: Medical Plan: Continue with blood pressure medication. Decrease salt intake and exercise on losartan 25 mg once a day (2) Hypercholesterolemia: Code(s): E78.00 - Pure hypercholesterolemia, unspecified Category: Medical Plan: Avoid fried foods, chicken skin, eggs, butter margarine, pastries and meat. Be it pork or beef they have a lot of cholesterol LDL goal of less than 130 and triglyceride of less than 150 (3) Impaired glucose tolerance: Code(s): R73.02 - Impaired glucose tolerance (oral) Category: Medical Plan: Decrease the amount of carbohydrate intake, pasta, bread, rice and potatoes are all sugar and that is aside from all the sweet stuff, remember that fruits are good but they are Sweet also. (4) BPH (benign prostatic hyperplasia): Code(s): N40.0 - Benign prostatic hyperplasia without lower urinary tract symptoms Category: Medical Plan: Stable (5) SOB (shortness of breath): Code(s): R06.02 - Shortness of breath Category: Medical (6) Cognitive change: Code(s): R41.89 - Other symptoms and signs involving cognitive functions and awareness Category: Medical Plan History of Present Illness The patient is an 79-year-old male presenting with follow-up for hypertension, hypercholesterolemia, and evaluation of new symptoms including dyspnea and memory loss. The patient has a history of benign prostatic hyperplasia, hypercholesterolemia, impaired glucose tolerance, and hypertension. He was last seen on December 24, and recent blood work on December 29 revealed anemia with hemoglobin at 13 g/dL and hematocrit at 38.9%. Electrolytes and renal function were normal, with a hemoglobin A1c of 5.8% and LDL cholesterol at 130 mg/dL. The patient reports experiencing dyspnea for the past month, particularly when bending over, but denies any associated cough or chest pain. He does not experience shortness of breath when climbing stairs. The patient also reports occasional memory loss and difficulty recalling recent events, such as forgetting the day or specific instructions. A cognitive assessment was performed, including memory recall and arithmetic tasks, which the patient struggled with. Health Maintenance Social History Review of Systems - Respiratory: Reports dyspnea for one month, denies cough or chest pain. - Neurological: Reports memory loss, difficulty recalling recent events. Physical Exam - Respiratory: Oxygen saturation at 98%, no signs of respiratory distress. Results - Labs: Hemoglobin 13 g/dL, Hematocrit 38.9%, Hemoglobin A1c 5.8%, LDL cholesterol 130 mg/dL. - Tests: Electrolytes and renal function normal. Plan The patient will continue on losartan 25 mg daily for hypertension management, with a goal to maintain blood pressure within normal limits. For hypercholesterolemia, the target LDL cholesterol is less than 130 mg/dL, and triglycerides should be maintained below 150 mg/dL. The patient will undergo further evaluation for anemia, including additional blood work to determine the underlying cause. A chest x-ray and lung function test are recommended to assess the cause of dyspnea. A referral to neurology is planned to evaluate memory loss, and a CAT scan will be conducted to investigate potential neurological causes. Urine analysis will be performed to assess any issues related to benign prostatic hyperplasia. Patient was informed and verbally consented to the use of an ambient scribe for clinic note documentation during this visit. Discussion Notes I discussed with the patient the importance of managing hypertension and hypercholesterolemia to prevent cardiovascular complications. We reviewed the need for further testing to evaluate anemia and dyspnea, including blood work, chest x-ray, and lung function tests. I explained the referral to neurology for memory loss and the plan to conduct a CAT scan to investigate potential causes. Patient Instructions - Continue taking losartan 25 mg daily as prescribed. - Follow a low-cholesterol diet to help manage LDL levels. - Schedule and complete the recommended chest x-ray and lung function test. - Attend the neurology referral appointment and complete the CAT scan as scheduled. - Return for follow-up in a couple of months or sooner if symptoms worsen. Orders: Orders Complete Blood Count Auto Diff Today R06.02 - Shortness of breath Reticulocyte Count Today R06.02 - Shortness of breath IRON PROFILE Today R06.02 - Shortness of breath Free T4 (Free Thyroxine) Today R06.02 - Shortness of breath Thyroid Stimulating Hormone Today R06.02 - Shortness of breath B Type Natriuretic Peptide Today R06.02 - Shortness of breath UA CC w/rflx Micro + Cult Today R06.02 - Shortness of breath, R30.0 - Dysuria CT head/brain wo IV con Today R41.89 - Other symptoms and signs involving cognitive functions and awareness PFT pulmonary function test Today R06.02 - Shortness of breath XR chest 2V Today R06.02 - Shortness of breath Comprehensive Met. Panel Today R06.02 - Shortness of breath Ferritin Today R06.02 - Shortness of breath Vitamin B12 and Folate Today R06.02 - Shortness of breath Syphilis Screen Today R41.3 - Other amnesia Referrals Neurology Referral R41.89 - Other symptoms and signs involving cognitive functions and awareness
[2025-02-04 08:50] VITALS: BP 140/80; PULSE 66; RESP 18; TEMP 36.3; O2SAT 97; BMI 25.4
== END 2025-02-04 09:46 | disposition home or self-care (01) ==
LOC: HO.HMCH 08:48
PROVIDERS: PCP Internal Medicine; Visit Provider Internal Medicine
DX: I10 Essential (primary) hypertension (principal); E78.00 Pure hypercholesterolemia, unspecified; R73.02 Impaired glucose tolerance (oral); N40.0 Benign prostatic hyperplasia without lower urinary tract symptoms; R06.02 Shortness of breath; R41.89 Other symptoms and signs involving cognitive functions and awareness

== ENCOUNTER → 2025-02-04 08:47 | Outpatient (BNVA) | payer MEDICARE, SELFPAY | PROVIDERS: PCP Internal Medicine; Visit Provider Internal Medicine | DX: I10 Essential (primary) hypertension (principal); E78.00 Pure hypercholesterolemia, unspecified; R73.02 Impaired glucose tolerance (oral); R06.02 Shortness of breath; R41.89 Other symptoms and signs involving cognitive functions and awareness; N40.0 Benign prostatic hyperplasia without lower urinary tract symptoms | CPT/HCPCS: 99212 ==

== ENCOUNTER 2025-06-09 09:30 | Outpatient (AMB) | payer MEDICARE, SELFPAY ==
[2025-06-09 09:35] VITALS: BP 130/70; PULSE 78; O2SAT 96; BMI 26.3
--- NOTE | 2025-06-09 09:35 | A.OFFVIS_ITS ---
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 lisinopril Adverse Reaction (Mild, Verified 06/09/25 09:35) Cough Medication List - Last Reconciled 06/09/25 by Nika Fonseca MD acetaminophen 1,000 mg PO Q6H PRN blood pressure monitor (Blood Pressure Kit) As directed citalopram 10 mg PO DAILY donepezil (Aricept) 10 mg PO DAILY losartan 25 mg PO DAILY melatonin 10 mg PO BEDTIME PRN trazodone 100 mg PO BEDTIME PRN HPI Comments Details: 79y/o Right handed male comes for cognitive change. His noticed that he was having short term memory issues for past few months. He constantly repeats himself, forgets what day it is, loses his phone, keys , forgets medications etc. No executive difficulties, uses all household equipments and drives. No recent head injury. 4 years ago he had head injury with Subdural Hematoma. He denies any major depression or anxiety He has chronic sleep issues- snores, difficulty falling asleep, staying asleep, vivid dreams , excessive daytime sleepiness. 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 [facility] Medical History (Updated 06/09/25 @ 10:09 by Nika Fonseca MD) Anxiety Mild cognitive impairment Blood pressure elevated without history of HTN Hearing deficit Knee effusion, right Right knee pain BPH (benign prostatic hyperplasia) Hypercholesterolemia Erectile dysfunction Insomnia Vitamin D deficiency History of subdural hematoma Surgical History History of colonoscopy Cataract Family History Father Kidney malignancy Mother CVD (cardiovascular disease) Brother No problems noted. Brother Heart disease Social History Housing: House Alcohol intake: current Alcohol intake frequency: does not drink Alcohol type: beer Comment: once a week 1 drink Patient Tobacco Use Status: Never used Tobacco e-Cigarette/Vaping Use: Never Used Second Hand Smoke Exposure: No service: No Current occupational status: retired Current occupation: rt handed Cognitive needs: No Hearing needs: No Vision needs: No Physical Exam Vital Signs: Last Vital Signs Pulse 78 06/09/25 09:35 BP 130/70 06/09/25 09:35 Pulse Ox 96 06/09/25 09:35 Oxygen Delivery Method Room Air 06/09/25 09:35 BMI result Body Mass Index 26.3 Const General: cooperative, healthy appearing, comfortable and no acute distress Nutritional Appearance: average body habitus Orientation/consciousness: patient oriented x3 Eyes Pupils: Equal, round and reactive pupils present Neuro General: patient oriented x3, gait normal, tone normal, moves all extremities and no focal motor deficits Cranial nerves: Yes Facial sensation intact/muscles of mastication intact, Yes Equal, round and reactive pupils present, Yes Bilaterally intact EOM present, Yes Nystagmus not present, Yes Normal facial strength present, Yes Midline tongue present and Yes Symmetric palate elevation present Cognition (Neuro): abnormal cognition Gait exam (Neuro): Normal gait present Motor exam (neuro): 5/5 motor strength present throughout and Normal motor muscle tone present throughout Deep tendon reflexes (DTR's): Right triceps reflex intensity grade: 1+, Left triceps reflex intensity grade: 1+, Rt Biceps (C5, C6): 1+, Left biceps reflex intensity grade: 1+, Right brachioradialis reflex intensity grade: 1+ and Left brachioradialis reflex intensity grade: 1+ Coordination: [id number] test normal Orientation What is the (year) (season) (date) (day) (month)?: year, season, date, day and month Where are we (state) (county) (town or city) (hospital) (floor)?: state, town or city, hospital/clinic and floor Registration Name of 3 unrelated objects clearly and slowly, then ask patient to repeat all 3 of them. (1st repeat determines score. Make sure they can repeat all three): object 1, object 2 and object 3 Attention & Calculation (CHOOSE ONE) Spell WORLD backwards (DLROW): 3 letters Language Show patient a wristwatch & ask what it is. Repeat for pencil.: watch and pencil Ask the patient to repeat the phrase 'No ifs, ands, or buts' after you.: correct Ask the patient to 'take a piece of paper with their right hand' 'fold paper in half' 'place paper on floor': take paper in right hand, fold paper in half and place paper on floor Print the sentence 'CLOSE YOUR EYES' on a piece. If patient actually closes eyes then score.: followed written direction Give patient a blank piece of paper & ask to write a sentence. Score if it contains a noun & verb.: sentence contains subject and verb Ask patient to copy figure of intersecting pentagons exactly. Score if all 10 angles & 2 intersects are included.: all 10 angles present & 2 are intersected Score Score: 24 Assessment & Plan Assessment & Plan (1) Mild cognitive impairment: Code(s): G31.84 - Mild cognitive impairment of uncertain or unknown etiology Category: Medical (2) Anxiety: Code(s): F41.9 - Anxiety disorder, unspecified Category: Medical Plan B12 and TSH were normal I will evaluate him with MRI brain to r/o focla lesions I will trial him on donepezil 5mg qd for 4 weeks then 10 mg qd Citalopram 10 mg for anxiety Orders: Orders MR brain wo con w neuroquant Today R41.89 - Other symptoms and signs involving cognitive functions and awareness Medications: New citalopram 10 mg PO DAILY 30 tabs 6RF donepezil (Aricept) 1/2 tab qd for 4 weeks then 1 tab qd 10 mg PO DAILY 30 tabs 6RF Coding Level of Care Code New Pt Level 4 (12539) Diagnoses Mild cognitive impairment G31.84 Anxiety F41.9
== END 2025-06-09 10:13 | disposition home or self-care (01) ==
LOC: HO.HSMS 09:31
PROVIDERS: PCP Internal Medicine; Visit Provider Psychiatry & Neurology Neurology
DX: G31.84 Mild cognitive impairment of uncertain or unknown etiology (principal); F41.9 Anxiety disorder, unspecified
CPT/HCPCS: 99204

== ENCOUNTER → 2025-06-09 09:30 | Outpatient (BNVA) | payer MEDICARE, SELFPAY | PROVIDERS: PCP Internal Medicine; Visit Provider Psychiatry & Neurology Neurology | DX: G31.84 Mild cognitive impairment of uncertain or unknown etiology (principal); G47.00 Insomnia, unspecified | CPT/HCPCS: 99202 ==